=== PATIENT | female | born 1970 | race Caucasian/White ===

== ENCOUNTER → 2020-07-06 15:19 | Outpatient (BNVA) | payer OTHER, SELFPAY | PROVIDERS: PCP Internal Medicine; Referring Provider Internal Medicine; Visit Provider Nurse Practitioner Family | DX: I48.0 Paroxysmal atrial fibrillation (principal); I10 Essential (primary) hypertension; R00.2 Palpitations; R00.0 Tachycardia, unspecified | CPT/HCPCS: 93005 ==

== ENCOUNTER → 2021-03-22 14:29 | Outpatient (BNVA) | payer OTHER, SELFPAY | PROVIDERS: PCP Internal Medicine; Referring Provider Internal Medicine; Visit Provider Internal Medicine Cardiovascular Disease | DX: I48.0 Paroxysmal atrial fibrillation (principal); I10 Essential (primary) hypertension | CPT/HCPCS: 93005 ==

== ENCOUNTER 2021-12-26 09:01 | Outpatient (REF) | payer OTHER, SELFPAY ==
[2021-12-26 10:24] LABS: MANUAL DIFF FLAG NO
[2021-12-26 11:04] LABS: Basophils Absolute Auto 0.1 X10*3/uL (0.0-0.2); Eosinophils Absolute Auto 0.2 X10*3/uL (0.0-0.4); Eosinophils Percent Auto 3.9 % (0-4); Hematocrit 42.9 % (37.0-47.0); Hemoglobin 14.1 g/dl (12.0-16.0); Imm Gran Abs Auto 0.02 X10*3/uL (0.00-0.03); Imm Gran Pct Auto 0.3 % (0.0-0.4); Lymphocytes Percent Auto 32.4 % (20-40); Mean Corpuscular HGB Conc 32.9 g/dl (31.0-35.0); Mean Corpuscular Hemoglobin 29.6 pg (27.0-33.0); Mean Corpuscular Volume 89.9 fL (80.0-98.0); Mean Platelet Volume 10.4 fL (9.4-12.3); Monocytes Absolute Auto 0.6 X10*3/uL (0.1-1.2); Monocytes Percent Auto 9.4 % (2-11); Neutrophils Absolute Auto 3.3 x10*3/uL (2.0-8.3); Platelet Count 249 X10*3/uL (160-400); Red Blood Count 4.77 X10*6/uL (4.20-5.50); Red Cell Distribution Width 12.5 % (11.0-16.0); White Blood Count 6.2 X10*3/uL (4.8-10.8)
[2021-12-26 11:50] LABS: Anion Gap 12 (12-20); Blood Urea Nitrogen 18 mg/dL (9-16); Calcium 9.7 mg/dL (8.4-10.2); Carbon Dioxide 25 mmol/L (22-29); Chloride 107 mmol/L (96-108); Estimated Glomerular Filt Rate > 60; Glucose Random 104 mg/dL (60-115); Potassium 5.3 mmol/L (3.3-5.1); Sodium 139 mmol/L (135-145)
== END 2021-12-26 09:02 | disposition home or self-care (01) ==
LOC: HO.LAB 09:01
PROVIDERS: PCP Internal Medicine; Visit Provider Internal Medicine Cardiovascular Disease
DX: I48.0 Paroxysmal atrial fibrillation (principal); I10 Essential (primary) hypertension
CPT/HCPCS: 36415; 80048; 85025; 93005

== ENCOUNTER → 2022-12-03 15:49 | Outpatient (REF) | payer OTHER, SELFPAY ==
--- NOTE | 2022-12-03 15:53 | CA_ITS ---
Transthoracic Echocardiogram Patient (Last, First, Middle): Kandy Mccann, Gender: Female Date of : 1970 Age: 52 Procedure Date: 12/03/2022 Procedure Type: Transthoracic Echocardiogram Location: OP Height: 165.1 cm Weight: 69.85 kg BSA: 1.77 m2 Heart Rate: 50 bpm BP: 122 / 84 mmHg Diamond Wheel Edger: CONCEPCION Referring MD: Arsen Del Rosario MD Gathering Machine Setter: Arsen Del Rosario MD Symptoms: I48.0 - Paroxysmal atrial fibrillation Study Quality: Adequate ECG Rhythm: Sinus Conclusions: - Normal study Findings Left Ventricle Normal left ventricular size, thickness, and systolic function. The visually estimated ejection fraction is between 60-65%. Spectral Doppler is indicative of a normal filling pattern. Peak GLS is -21.9%, within normal limits. Right Ventricle Normal right ventricular cavity size and systolic function. Atria Both atria are normal in size. There is no evidence of interatrial shunt. Aortic Valve Normal aortic valve structure and function. There is no aortic valve stenosis. There is no aortic valve regurgitation. Mitral Valve Normal mitral valve structure and function. There is trace mitral valve regurgitation. There is no mitral valve stenosis. Pulmonic Valve The pulmonic valve is likely normal. There is trace to mild pulmonic valve regurgitation. Tricuspid Valve Normal tricuspid valve structure. There is trace tricuspid valve regurgitation. The right ventricular systolic pressure is 26 mmHg. Normal right atrial pressure. There is no evidence of pulmonary hypertension. Great Vessels All visible segments of the aorta are normal in size. The visualized portions of the pulmonary artery and branches are normal. Venous The inferior vena cava is normal in size and collapses greater than 50% with inspiration. Pericardium/Pleural There is no evidence of pericardial effusion. Measurements 2D Linear Measurements IVSd: 0.94 0.6-0.9/0.6-1.0 cm LVIDd: 4.65 3.9-5.3/4.2-5.9 cm LVIDd Index: 2.63 2.4-3.2/2.2-3.1 cm/m2 LVIDs: 2.91 2.0-3.6 cm LVPWd: 0.95 0.7-1.1 cm LA Diam: 3.90 2.7-3.8/3.0-4.0 cm LAIDs Index: 2.20 1.5-2.3 cm/m2 LV Mass: 186.48 67-162/88-224 g LV Mass Index: 105.36 43-95/49-115 g/m2 LVOT Diam: 2.00 3.0+(-)1.3 cm 2D Systolic Function EF 4C: 61.90 >55% EF 2C: 62.70 >55% EF BiP: 61.90 >55% Mitral Valve MV Pk E: 0.86 MV PK A: 0.69 MV Decel Time: 221.00 E/A: 1.20 E'Lateral: 10.40 E'Medial: 7.07 E/E' Med: 12.20 E/E' Lat: 8.30 PHT: 65.00 MVA PHT: 3.38 Decel Petroleum: 3.90 Aortic Valve AoV Pk Guilherme: 1.52 AoV Mn Guilherme: 1.05 AoV VTI: 0.41 AoV Pk Grad: 9.00 Aov Mn Grad: 5.00 YUSUF Cont.VTI: 2.66 LVOT LVOT Pk Guilherme: 1.36 LVOT Mn Guilherme: 0.90 LVOT VTI: 0.35 LVOT Pk Grad: 7.00 LVOT Mn Grad: 4.00 LVOT Diam: 2.00 LVOT Area: 3.14 Diastolic Function MV Pk E: 0.86 MV Pk A: 0.69 E/A: 1.20 E'Medial: 7.07 E/E' Med: 12.20 E' Laterial: 10.40 E/E' Lat: 8.30 Right Ventricle TAPSE (mm): 26.10 TVS' Guilherme: 12.20 Tricuspid Valve TR Pk Guilherme: 2.39 TR Pk Grad: 23.00 RA Press: 3.00 RVSP: 26.00 Great Vessels Aorta Sinus of Valsalva: 2.64 2.0-3.5 cm Ao Asc: 3.00 2.1-3.4 cm Updated in Other Vendor System with Status of Final Arsen Del Rosario MD electronically signed on 12/04/2022 4:23:36 PM with status of Final
== END ==
LOC: HO.CARD 15:49
PROVIDERS: Visit Provider Internal Medicine Cardiovascular Disease
DX: I48.0 Paroxysmal atrial fibrillation (principal)
CPT/HCPCS: 93306

== ENCOUNTER 2022-12-24 10:15 | Outpatient (REF) | payer OTHER, SELFPAY ==
[2022-12-24 11:41] LABS: Hematocrit 43.5 % (37.0-47.0); Hemoglobin 14.3 g/dl (12.0-16.0); Mean Corpuscular HGB Conc 32.9 g/dl (31.0-35.0); Mean Corpuscular Hemoglobin 29.5 pg (27.0-33.0); Mean Corpuscular Volume 89.7 fL (80.0-98.0); Mean Platelet Volume 9.9 fL (9.4-12.3); Platelet Count 284 X10*3/uL (160-400); Red Blood Count 4.85 X10*6/uL (4.20-5.50); Red Cell Distribution Width 12.4 % (11.0-16.0); White Blood Count 5.9 X10*3/uL (4.8-10.8)
[2022-12-24 12:13] LABS: Anion Gap 13 (12-20); Blood Urea Nitrogen 17 mg/dL (9-16); Calcium 9.7 mg/dL (8.4-10.2); Carbon Dioxide 24 mmol/L (22-29); Chloride 106 mmol/L (96-108); Estimated Glomerular Filt Rate > 60; Glucose Random 100 mg/dL (60-115); Potassium 4.1 mmol/L (3.3-5.1); Sodium 139 mmol/L (135-145)
== END 2022-12-24 10:16 | disposition home or self-care (01) ==
LOC: HO.LAB 10:15
PROVIDERS: PCP Internal Medicine; Visit Provider Internal Medicine Cardiovascular Disease
DX: I48.0 Paroxysmal atrial fibrillation (principal); I10 Essential (primary) hypertension; R42 Dizziness and giddiness
CPT/HCPCS: 36415; 80048; 85027; 93005

== ENCOUNTER 2023-12-23 08:32 | Outpatient (REF) | payer OTHER, SELFPAY ==
[2023-12-23 09:51] LABS: Hematocrit 43.2 % (37.0-47.0); Hemoglobin 14.4 g/dl (12.0-16.0); Mean Corpuscular HGB Conc 33.3 g/dl (31.0-35.0); Mean Corpuscular Volume 86.9 fL (80.0-98.0); Mean Platelet Volume 9.5 fL (9.4-12.3); Platelet Count 248 X10*3/uL (160-400); Red Blood Count 4.97 X10*6/uL (4.20-5.50); White Blood Count 5.1 X10*3/uL (4.8-10.8)
[2023-12-23 10:32] LABS: Anion Gap 13 (12-20); Blood Urea Nitrogen 14 mg/dL (9-16); Carbon Dioxide 26 mmol/L (22-29); Chloride 107 mmol/L (96-108); Estimated Glomerular Filt Rate > 60; Glucose Random 86 mg/dL (60-115); Sodium 142 mmol/L (135-145)
[2023-12-23 10:53] LABS: TSH reflex Free T4 0.47 uIU/mL (0.32-4.0)
== END 2023-12-23 08:33 | disposition home or self-care (01) ==
LOC: HO.LAB 08:32
PROVIDERS: PCP Internal Medicine; Visit Provider Internal Medicine Cardiovascular Disease
DX: I48.0 Paroxysmal atrial fibrillation (principal); I10 Essential (primary) hypertension
CPT/HCPCS: 36415; 80048; 84443; 85027; 93005

== ENCOUNTER 2023-12-23 08:32 | Outpatient (AMB) | payer OTHER, SELFPAY ==
--- NOTE | 2023-12-23 08:37 | A.OFFVIS_ITS ---
Vital Signs 12/23/23 08:40 Height 5 ft 5 in Weight 145 lb 8.081 oz BMI 24.2 BP 114/70 Blood Pressure Location Lt brachial Position Sitting Pulse 66 Intake Visit Reasons: 1 yr w/ ekg s/p echo Intake Note: 1 year follow-up with ekg after echo feeling good Bias Cutting Machine Operator Vertical Required: No Allergies bupropion [From Wellbutrin] Allergy (Unknown, Verified 03/22/21 14:41) unknown codeine [CODEINE] Allergy (Unknown, Verified 03/22/21 14:41) UNKNOWN trazodone [TRAZODONE] Allergy (Unknown, Verified 03/22/21 14:41) ITCHING Medication List - Last Reconciled 12/23/23 by Arsen Del Rosario MD escitalopram oxalate 5 mg PO QAM flecainide 150 mg (3 x 50 mg) PO ONCE PRN metoprolol succinate ER 50 mg PO DAILY rivaroxaban (Xarelto) 20 mg PO DAILY rosuvastatin 20 mg PO Q OTHER DAY HPI Comments Details: Kandy comes for follow-up. She has been doing very well although recently for about 2 months she has not taking losartan because she was feeling lightheaded. She is started using her be oz weight loss injections and also had stopped taking Xarelto and metoprolol. However she started having palpitation she is back on metoprolol at this point in time. She is also started on Xarelto. She has stopped taking the weight loss injections. 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 She is getting lower anxious and stressed. She has not been measuring her blood pressure at home. However she denies any exertional chest pain. No orthopnea, PND, leg edema. [facility] Medical History Family history of coronary artery disease HLD (hyperlipidemia) PAF (paroxysmal atrial fibrillation) HTN (hypertension) Family History Father CVD (cardiovascular disease) Mother No problems noted. Social History Alcohol intake: current Alcohol intake frequency: a few times a week Alcohol type: beer, wine and hard liquor Patient Tobacco Use Status: Never used Tobacco Review of Systems Const Denies chills, Denies fatigue, Denies fever(s), Denies frequent falls, Denies weakness, Denies weight gain and Denies weight loss ENT Denies dizziness Card Denies chest pain, Denies leg edema, Denies lightheadedness, Denies palpitations, Denies dyspnea, Denies dyspnea on exertion, Denies orthopnea and Denies other (loss of consciousness) Resp Denies cough, Denies dyspnea and Denies dyspnea on exertion GI Denies hematochezia and Denies change in stool character Musc Denies abnormal gait, Denies muscle weakness, Denies numbness, Denies radiating pain into limb and Denies tingling Neuro Denies abnormal gait, Denies dizziness, Denies frequent falls, Denies numbness, Denies tingling and Denies weakness Endo Denies fatigue and Denies palpitations Physical Exam Vital Signs: Last Vital Signs Pulse 66 12/23/23 08:40 BP 114/70 12/23/23 08:40 BMI result Body Mass Index 24.2 Const General: cooperative, healthy appearing, comfortable and no acute distress Orientation/consciousness: patient oriented x3 HEENT Head: Yes normal to inspection Neck Neck: Yes normal visual inspection and Yes no JVD Carotids: normal carotid upstroke Resp Effort & Inspection: normal respiratory effort Auscultation: clear to auscultation bilaterally, no crackles, no rales, no rhonchi and no wheezes Cardio Jugular venous distension: no JVD Rate: regular rate Rhythm: regular rhythm Heart sounds: S1 normal heart sound present, S2 normal heart sound present, no gallops, no murmurs and no rubs Peripheral pulses: Peripheral pulses 2+ throughout GI Inspection: Yes normal to inspection Neuro General: patient oriented x3 Extrem General: Yes normal to inspection, No no pedal edema and No calf tenderness Office Procedures EKG Details: EKG shows normal sinus rhythm with incomplete right bundle-branch block with nonspecific T-wave changes predominantly T-wave inversion in V6 with borderline QTC interval 61004-Ookgcijldufjtoxtt, Complete Assessment & Plan Assessment & Plan (1) PAF (paroxysmal atrial fibrillation): Code(s): I48.0 - Paroxysmal atrial fibrillation Category: Medical Plan: Paroxysmal atrial fibrillation without any significant episodes of recurrent atrial fibrillation. She was having increased palpitation when she came on metoprolol which has now subsided on metoprolol therapy. Importance of medical therapy was discussed. CHADSVASc score of 2. Continue full oral anticoagulation, currently on Xarelto 20 mg daily. Semi annual renal function test should be pursued. Will check CBC, BMP and TSH. Avoidance of stimulants was discussed. Stress mitigation strategies were discussed. (2) HTN (hypertension): Code(s): I10 - Essential (primary) hypertension Category: Medical Plan: Hypertension which is currently optimized on metoprolol therapy. She is currently off losartan therapy for 2 months. Blood pressure is well optimized and she was having symptoms of lightheadedness. I advised her to stay of losartan therapy for now. However advised her to monitor blood pressure intermittently at home. Low-salt diet was discussed. Importance of regular physical activity was discussed. Stress mitigation strategies were discussed. Continue rosuvastatin therapy. Target goal LDL definitely less than 100 mg/dL. She has not fasting today would recommend through your office to have a fasting lipid panel in the near future. Will follow up in the clinic in 1 year's time after an echocardiogram. Thank you for allowing me to partake in her care Orders: Orders Complete Blood Count no Diff Today I48.0 - Paroxysmal atrial fibrillation TSH reflex Free T4 Today I48.0 - Paroxysmal atrial fibrillation CA echo transthoracic complete 1 Year I48.0 - Paroxysmal atrial fibrillation Basic Metabolic Panel Today I48.0 - Paroxysmal atrial fibrillation Coding Level of Care Code Est Pt Level 4 (15359) Diagnoses PAF (paroxysmal atrial fibrillation) I48.0 HTN (hypertension) I10 CPT Codes EKG - CPT: 10054-Yjzrrvfudecuzbajc, Complete ([id number])
[2023-12-23 08:40] VITALS: BP 114/70; PULSE 66; BMI 24.2
== END 2023-12-23 11:12 | disposition home or self-care (01) ==
PROVIDERS: Visit Provider Internal Medicine Cardiovascular Disease
DX: I48.0 Paroxysmal atrial fibrillation (principal); I10 Essential (primary) hypertension
CPT/HCPCS: 93010; 99214

== ENCOUNTER → 2024-12-17 08:21 | Outpatient (REF) | payer OTHER, SELFPAY ==
--- NOTE | 2024-12-17 08:27 | CA_ITS ---
Transthoracic Echocardiogram Patient (Last, First, Middle): Kandy Holly, Gender: Female Date of : 1970 Age: 54 Procedure Date: 12/17/2024 Procedure Type: Transthoracic Echocardiogram Location: OP Height: 165.1 cm Weight: 65.77 kg BSA: 1.73 m2 Heart Rate: 59 bpm BP: 114 / 70 mmHg Director Manufacturing Engineering: ARAVIND Referring MD: Arsen Del Rosario MD Vehicle Body Sander: Arsen Del Rosario MD Symptoms: I48.0 - Paroxysmal atrial fibrillation Study Quality: Adequate ECG Rhythm: Bradycardia Conclusions: - Essentially normal study Findings Left Ventricle Normal left ventricular size, thickness, and systolic function. The visually estimated ejection fraction is between 60-65%. Spectral Doppler is indicative of a normal filling pattern. Right Ventricle Normal right ventricular cavity size and systolic function. Atria Both atria are normal in size. There is no evidence of interatrial shunt. Aortic Valve Normal aortic valve structure and function. There is no aortic valve stenosis. There is no aortic valve regurgitation. Mitral Valve Normal mitral valve structure and function. There is trace mitral valve regurgitation. There is no mitral valve stenosis. Pulmonic Valve The pulmonic valve is likely normal. There is trace pulmonic valve regurgitation. Tricuspid Valve Normal tricuspid valve structure. There is trace tricuspid valve regurgitation. The right ventricular systolic pressure is normal. The right ventricular systolic pressure is 20 mmHg. Normal right atrial pressure. There is no evidence of pulmonary hypertension. Great Vessels All visible segments of the aorta are normal in size. The pulmonary artery was not well visualized. Venous The inferior vena cava is normal in size and collapses greater than 50% with inspiration. Pericardium/Pleural There is no evidence of pericardial effusion. Prior Study Comparison No significant change compared to prior study dated: 12/03/2022. Measurements 2D Linear Measurements IVSd: 0.96 0.6-0.9/0.6-1.0 cm LVIDd: 5.05 3.9-5.3/4.2-5.9 cm LVIDd Index: 2.92 2.4-3.2/2.2-3.1 cm/m2 LVIDs: 2.96 2.0-3.6 cm LVPWd: 0.77 0.7-1.1 cm LA Diam: 3.80 2.7-3.8/3.0-4.0 cm LAIDs Index: 2.20 1.5-2.3 cm/m2 LV Mass: 190.05 67-162/88-224 g LV Mass Index: 109.86 43-95/49-115 g/m2 LVOT Diam: 2.10 3.0+(-)1.3 cm 2D Systolic Function EF 4C: 61.10 >55% EF 2C: 66.60 >55% EF BiP: 64.50 >55% Mitral Valve MV Pk E: 0.82 MV PK A: 0.77 MV Decel Time: 207.00 E/A: 1.10 E'Lateral: 10.70 E'Medial: 8.27 E/E' Med: 9.90 E/E' Lat: 7.60 PHT: 61.00 MVA PHT: 3.61 Decel Pike: 3.94 Aortic Valve AoV Pk Guilherme: 1.65 AoV Pk Grad: 11.00 YUSUF: 3.29 LVOT LVOT Pk Guilherme: 1.48 LVOT Mn Guilherme: 1.00 LVOT VTI: 0.31 LVOT Pk Grad: 9.00 LVOT Mn Grad: 5.00 LVOT Diam: 2.10 LVOT Area: 3.46 Diastolic Function MV Pk E: 0.82 MV Pk A: 0.77 E/A: 1.10 E'Medial: 8.27 E/E' Med: 9.90 E' Laterial: 10.70 E/E' Lat: 7.60 Right Ventricle TAPSE (mm): 21.90 TVS' Guilherme: 11.00 Tricuspid Valve TR Pk Guilherme: 2.05 TR Pk Grad: 17.00 RA Press: 3.00 RVSP: 20.00 Great Vessels Aorta Sinus of Valsalva: 2.50 2.0-3.5 cm Ao Asc: 3.00 2.1-3.4 cm Ao Arch: 3.10 Ao Desc: 1.10 Pulmonary Valve PV Pk Guilherme: 0.98 Peak PV Grad: 4.00 Updated in Other Vendor System with Status of Final Arsen Del Rosario MD electronically signed on 12/18/2024 12:12:23 PM with status of Final
--- OUTSIDE RECORDS SUMMARY | 2024-12-17 08:34 | XMS_ITS | Encounter Summary ---
Author Organization [facility] Address [address] [place] [address] Care Team Providers Care Swing Ride Operator Name Role Phone Jimmy Aguilar MD Primary Care Provider Encounter Details Date Type Department Care Team (Late st Contact Info) Description 06/11/2021 Scanned Document [address] [address] Provider, Generic Social History Tobacco Use Types Packs/Day Years Used Date Smoking Tobacco: Never Smokeless Tobacco: Never Alcohol Use Standard Drinks/Week Comments Yes 0 (1 standard drink = 0.6 oz pur e alcohol) occasional Comments No Sex and Gender Information Value Date Recorded Sex Assigned at Female 03/15/2023 12:08 AM EDT Legal Sex Female 2:00 PM EDT Gender Identity Female 03/15/2023 12:08 AM EDT Sexual Orientation Heterosexual (straight) 03/15 12:08 AM EDT documented as of this encounter Plan of Treatment Upcoming Encounters Date Type Department Care Team (Late st Contact Info) Description 02/02/2025 11:30 AM EDT Office Visit [facility] [address] [place] [address] Sacha Whitfield MD [address] [place] [address] 07/19/2025 8:45 AM EST Office Visit [facility] [address] [facility] [address] [place] [address] Josh Fregoso MD 80 [place] [address] 08/23/2026 2:00 PM EST Office Visit [facility] Endocrinology [place] 190 [facility] 103 [place] [phone] Ariel Jimenez MD 190 [facility] 103 [place] [address] documented as of this encounter Visit Diagnoses Not on filedocumented in this encounter Care Teams Swing Ride Operator Relationship Specialty Start Date End Date Jimmy Aguilar MD [address] [place] [address] PCP - General Internal Medicine 10/03/19 documented as of this encounter
--- OUTSIDE RECORDS SUMMARY | 2024-12-17 08:34 | XMS_ITS | Patient Health Record ---
Author Organization [employer] [facility]. Address [address] [facility] [id number] [address] Care Team Providers Care Loan Underwriter Name Role Phone Conversion, Primary Care Provider REASON FOR REFERRAL No Information PLAN OF TREATMENT No Information
--- OUTSIDE RECORDS SUMMARY | 2024-12-17 08:34 | XMS_ITS | Encounter Summary ---
Author Organization [facility] Address [address] [place] [address] Care Team Providers Care Machining Supervisor Name Role Phone Jimmy Aguilar MD Primary Care Provider [phone] Encounter Details Date Type Department Care Team (Late st Contact Info) Description 07/10/2020 Lab Requisition [facility] [address] [place] [phone] Bora Ricketts PA-C [address] [place] [address] Encounter for laboratory testing for COVID-19 virus Social History Tobacco Use Types Packs/Day Years [...] Orientation Heterosexual (straight) 03/15 12:08 AM EDT COVID-19 Exposure Response Date Recorded In the last month, have you been in contact with someone who was confirmed or suspected to have Coronavirus / COVID-19? Yes 07/10/2020 10:07 AM EST documented as of this encounter Plan of Treatment Upcoming Encounters Date Type Department Care Team (Late st Contact Info) Description 02/02/2025 11:30 AM EDT Office Visit [address] [address] Sacha Whitfield MD [address] [place] [address] 07/19/2025 8:45 AM EST Office Visit [facility] 10 [facility] [address] [place] [phone] Josh Fregoso MD 80 [place] [address] 08/23/2026 2:00 PM EST Office Visit [facility] Endocrinology [place] [address] [place] [facility] [address] [place] [phone] Ariel Jimenez MD [address] [place] [facility] 103 [place], [place] [phone] documented as of this encounter Procedures Procedure Name Priority Date/Time Associated Diagnosis Comments COVID-19 (SARS-COV-2) - [facility] Routine 07/10/2020 10:32 AM EST Encounter for laboratory testing for COVID-19 virus [ICD-10-CM] documented in this encounter Results * COVID-19 (SARS-COV-2) (07/10/2020 10:32 AM EST) COVID-19 RT-PCR NOT-DETEC JEREMAÍS Not-Detec jeremías 07/11/2020 12:01 PM EST [facility] Comment:Interpretation: The viral RNA was not detected, making the COVID-19 diagnosis less likely. Clinical correlation is highly recommended.Final report signed by Willi Moser, Ph.D., Laboratory DirectorTests performed at [facility] Nasopharyngeal swab / Unknown 07/10/2020 10:32 AM EST 07/10/2020 10:32 AM EST Narrative [facility] - 07/11/2020 12:01 PM EST Performed by [facility] [address] [place] [address], CLIA# [id number] and [place] License# [id number] Bora Ricketts PA-C MICROBIOLOGY - GENERAL OR DERABLES Final Result [facility] documented in this encounter Visit Diagnoses Diagnosis Encounter for laboratory testing for COVID-19 virus documented in this encounter Care Teams Machining Supervisor Relationship Specialty Start Date End Date Jimmy Aguialr MD [address] [place] [address] PCP - General Internal Medicine 10/03/19 documented as of this encounter
--- OUTSIDE RECORDS SUMMARY | 2024-12-17 08:35 | XMS_ITS | Encounter Summary ---
Author Organization [facility] Address [address] [place] [address] Care Team Providers Care Alteration Specialist Name Role Phone Jimmy Aguilar MD Primary Care Provider Encounter Details Date Type Department Care Team (Latest Contact Info) Description 09/02/2020 Lab Requisition [facility] [address] Through [address] [place] [address] [address] [place] [address] Jamel Hernandez MD 80 [place], [place] [phone] Encounter for laboratory testing for COVID-19 virus [...] Description 02/02/2025 11:30 AM EDT Office Visit [address] [phone] Sacha Whitfield MD [address] [place] [address] 07/19/2025 8:45 AM EST Office Visit [facility] [address] [facility] [address] [place] [address] Josh Fregoso MD 80 [place] [address] 08/23/2026 2:00 PM EST Office Visit [facility] Endocrinology [place] [address] [facility] [address] [place] [address] Ariel Jimenez MD [address] [facility] [address] [place], [place] [phone] documented as of this encounter Procedures Procedure Name Priority Date/Time Associated Diagnosis Comments COVID-19 (SARS-COV-2) - [facility] Routine 09/02/2020 1:27 PM EST Encounter for laboratory testing for COVID-19 virus [ICD-10-CM] documented in this encounter Results * COVID-19 (SARS-COV-2) ([facility]) (09/02/2020 1:27 PM EST) COVID-19 RT-PCR NOT-DETEC JEREMÍAS Not-Detec jeremías 09/03/2020 9:33 PM EST [facility] Comment:Interpretation: The viral RNA was not detected, making the COVID-19 diagnosis less likely. Clinical correlation is highly recommended.Final report signed by Willi Moser, Ph.D., Laboratory DirectorTests performed at [facility] Nasopharyngeal swab / Unknown 09/02/2020 1:27 PM EST 09/02/2020 1:27 PM EST Narrative [facility] - 09/03/2020 9:33 PM EST Performed by [facility] [address] [place], [place] [id number], CLIA# [id number] and [place] License# [id number] us Jamel Hernandez MD MICROBIOLOGY - GENERAL ORDER TWAN Final Result [facility] documented in this encounter Visit Diagnoses Diagnosis Encounter for laboratory testing for COVID-19 virus documented in this encounter Care Teams Alteration Specialist Relationship Specialty Start Date End Date Jimmy Aguilar MD [address] [place] [address] PCP - General Internal Medicine 10/03/19 documented as of this encounter
--- OUTSIDE RECORDS SUMMARY | 2024-12-17 08:35 | XMS_ITS | Encounter Summary ---
Author Organization [facility] Address [address] [place] [address] Care Team Providers Care Glass Bender Name Role Phone Jimmy Aguilar MD Primary Care Provider Encounter Details Date Type Department Care Team (Latest Contact Info) Description 09/26/2020 Lab Requisition [facility] [address] Through [address] [place] [address] [address] [place] [address] Jamel Hernandez MD [address] [place], [place] [phone] Encounter for laboratory testing for COVID-19 virus [...] Description 02/02/2025 11:30 AM EDT Office Visit [address] [phone] Sacha Whitfield MD [address] [place] [address] 07/19/2025 8:45 AM EST Office Visit [facility] [address] [facility] [address] [place] [address] Josh Fregoso MD 80 [place] [address] 08/23/2026 2:00 PM EST Office Visit [facility] Endocrinology [place] [address] [place] [address] [place] [address] Ariel Jimenez MD [address] [place], [place] [phone] documented as of this encounter Procedures Procedure Name Priority Date/Time Associated Diagnosis Comments COVID-19 (SARS-COV-2) - [facility] Routine 09/26/2020 4:54 PM EST Encounter for laboratory testing for COVID-19 virus [ICD-10-CM] documented in this encounter Results * COVID-19 (SARS-COV-2) ([facility]) (09/26/2020 4:54 PM EST) COVID-19 RT-PCR NOT-DETEC JEREMÍAS Not-Detec jeremías 09/27/2020 7:12 PM EST [facility] Comment:Interpretation: The viral RNA was not detected, making the COVID-19 diagnosis less likely. Clinical correlation is highly recommended.Final report signed by Jose Veloz, Ph.D., Laboratory DirectorTests performed at [facility] Nasopharyngeal swab / Unknown 09/26/2020 4:54 PM EST 09/26/2020 4:54 PM EST Narrative [facility] - 09/27/2020 7:12 PM EST Performed by [facility] [address] [place], [place] [id number], CLIA# [id number] and [place] License# [id number] us Jamel Hernandez MD MICROBIOLOGY - GENERAL ORDER TWAN Final Result [facility]4 [facility] documented in this encounter Visit Diagnoses Diagnosis Encounter for laboratory testing for COVID-19 virus documented in this encounter Care Teams Glass Bender Relationship Specialty Start Date End Date Jimmy Aguilar MD [address] [place] [address] PCP - General Internal Medicine 10/03/19 documented as of this encounter
--- OUTSIDE RECORDS SUMMARY | 2024-12-17 08:35 | XMS_ITS ---
Author Name [facility] Organization Unknown Results Test Name/Text Value Interpretation Date Range Source LAB AP CLINICAL INFORMATION Calcinosis cutis Normal [facility] LAB AP DIAGNOSIS COMMENT Received from [facility], [facility] [address], [place] [id number], are one slide and one block labeled [id number] , which are retained for our files. Normal [facility] AP GROSS DESCRIPTION Received in formalin is an irregularly shaped fragment of skin measuring 0.5 x 0.3 x 0.3 cm. The specimen is bisected and submitted entirely in one cassette. (Gross description performed by [facility].) Normal [facility] AP CLINICAL INFORMATION SCC Normal [id number] [facility] AP DIAGNOSIS COMMENT Received from [facility], [address] [place] [address], [address], [place] [id number] are one slide and one block labeled [id number] , which are retained for our files. Normal [id number] [facility] AP GROSS DESCRIPTION Received in formalin is an irregularly shaped fragment of skin measuring 0.9x0.8x0.2 cm. The deep margin is inked in black, and the specimen is serially sectioned and submitted entirely in one cassette (Gross description performed by [facility].) Normal [facility] AP DIAGNOSIS COMMENT Received from [facility], [facility] [address], [address], [place] [address] are one slide and one block labeled [id number] , which are retained for our files. Normal [facility] AP CLINICAL INFORMATION SCC; margins requested Normal [id number] [facility] History of Medication Use Medication Directions Dispensed Refills Start Date End Date Stat benzonatate (TESSALON) 200 MG capsule Take 1 capsule (200 mg total) by mouth 3 (three) times a day as needed for cough. 09/14/2024 active doxycycline (MONODOX) 100 MG capsule Take 1 capsule (100 mg total) by mouth 2 (two) times a day. 09/14/2024 active rimegepant (NURTEC) 75 mg dispersible tablet Take 1 tablet (75 mg total) by mouth every other day. 09/08/2024 active botulinum toxin type A (BOTOX) injection SOLR 200 Units 200 Units, Intramuscular, Once, On Fri03/17/24 at 0930, For 1 dose 03/17/2024 03/17/2024 completed lidocaine (PF) 100 mg/5 mL (2 %) injection syringe Take 8 mL by injection route. 02/23/2024 03/10/2024 active triamcinolone acetonide 40 mg/mL suspension for injection Take 80 mg by injection route. 02/23/2024 03/10/2024 active sulfamethoxazole-tri methoprim (BACTRIM DS,SEPTRA DS) 800-160 MG tablet 1 tablet 07/01/2023 07/02/2023 active lidocaine (LIDODERM) 5 % patch Place 1 patch on the skin daily. Apply patch and leave on for 12 hours then remove. Patch may remain on skin for 12 hours per day. 02/09/2023 05/03/2023 active losartan (COZAAR) 50 mg tablet Take 1 tablet (50 mg total) by mouth 1 (one) time each day. 08/05/2021 active losartan (COZAAR) tablet 50 mg Take 50 mg by mouth daily. 08/05/2021 active metoprolol succinate (TOPROL-XL) 50 mg 24 hr tablet Take 1 tablet (50 mg total) by mouth 1 (one) time each day. 01/30/2021 active oseltamivir (TAMIFLU) 75 MG capsule Take 1 capsule (75 mg total) by mouth 2 (two) times a day. 05/20/2020 05/03/2023 aborted losartan (COZAAR) 50 MG tablet Take 1 tablet (50 mg total) by mouth daily. 05/02/2020 active chlorhexidine (PERIDEX) 0.12 % oral solution RINSE AND GARGLE 15 ML PO OR THROAT BID FOR 14 DAYS 03/30/2020 active butalbital-acetamino phen-caffeine (FioriCET) 50-300-40 mg Cap capsule TK 1 TO 2 CS PO Q 4 H PRF TRAN 03/24/2020 active traMADol (ULTRAM) 50 MG tablet TK 1 TO 2 TS PO Q 6 H PRF ACUTE PAIN 03/24/2020 active famotidine (PEPCID) 20 MG tablet Take 1 tablet (20 mg total) by mouth 2 (two) times a day. 03/14/2020 05/03/2023 aborted rivaroxaban (Xarelto) 20 mg tablet Take 1 tablet (20 mg total) by mouth 1 (one) time each day in the evening. 03/09/2018 active XARELTO 20 MG TABS tablet 20 mg every evening. 03/09/2018 active rnoozmyh-gggtcalcb-v ydrocort 3.5 mg/mL-10,000 unit/mL-1 % ear solution APPLY 3 DROPS TO EAR DIRECTED EVERY 6 HOURS FOR 10 DAYS 11/15/2024 completed cefdinir 300 mg capsule TAKE 2 CAPSULES BY MOUTH EVERY DAY FOR 10 DAYS 08/09/2024 completed fluticasone propionate 50 mcg/actuation nasal spray,suspension SHAKE LIQUID AND USE 1 SPRAY IN EACH NOSTRIL ONCE A DAY 08/09/2024 completed naproxen 500 mg tablet TAKE 1 TABLET BY MOUTH EVERY 12 HOURS NEEDED FOR PAIN TAKE WITH FOOD FOR PAIN AND SWELLING 08/09/2024 completed prednisone 10 mg tablet TAKE 3 TABLETS BY MOUTH DAILY FOR 2 DAYS THEN TAKE 2 TABLETS BY MOUTH DAILY FOR 2 DAYS THEN TAKE 1 TABLET BY MOUTH DAILY WITH FOOD FOR 2 DAYS 08/09/2024 completed ibuprofen 800 mg tablet TAKE 1 TABLET BY MOUTH EVERY 8 HOURS 03/10/2024 completed oxycodone 5 mg tablet 03/10/2024 completed tamsulosin 0.4 mg capsule 03/10/2024 completed losartan 50 mg tablet TAKE 1 TABLET BY MOUTH DAILY active metoprolol succinate ER 50 mg tablet,extended release 24 hr TAKE 1 TABLET BY MOUTH DAILY active rosuvastatin 20 mg tablet TAKE 1 TABLET BY MOUTH EVERY OTHER DAY active rivaroxaban (XARELTO) 20 MG tablet Take 1 tablet (20 mg total) by mouth every evening with dinner. Take with meals. active rosuvastatin (CRESTOR) 5 mg tablet Take 2 tablets (10 mg total) by mouth. every other day. active rosuvastatin (CRESTOR) tablet 5 mg Take 10 mg by mouth every other day. 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 ([facility] V24) active 2021-11-21 ProblemAct [facility] Medial epicondylitis, left elbow active 2020-05-09 ProblemAct [facility] Discomfort of back active 2021-01-29 ProblemAct [facility] Memory deficit active 2021-10-22 ProblemAct [facility]_ [facility] Bone marrow edema active 2022-06-11 ProblemAct [facility] Lateral epicondylitis, right elbow active 2020-05-09 ProblemAct [facility] Generalized anxiety disorder active 2021-10-22 ProblemAct [facility] Sacroiliac pain active 2022-03-11 ProblemAct [facility] _[facility] Trochanteric bursitis, right hip active 2020-05-09 ProblemAct [facility] Pain and swelling of left knee active 2022-05-22 ProblemAct [facility] Other sleep apnea active 2021-07-26 ProblemAct [facility] Attention deficit hyperactivity disorder, combined type active 2021-11-21 ProblemAct [facility] Paroxysmal atrial fibrillation ([facility] V24, [facility] V28) active 2021-01-29 ProblemAct [facility] Left knee injury active 2022-06-11 ProblemAct C T_THSFRAN Lab test positive for detection of COVID-19 virus active 2021-08-06 ProblemAct [facility] Hypertension active 2003-03-04 ProblemAct [facility] Skin cancer active 2020-03-13 ProblemAct [facility] A-fib active 2014-03-04 ProblemAct [facility] High cholesterol active 2004-08-04 ProblemAct [facility] Suicide attempt active 2023-03-15 ProblemAct [facility] Blurred vision, bilateral active EncounterDiagnosisAct [facility] Stroke (cerebrum) active 2005-12-27 ProblemAct [facility] Osteoarthritis of right knee joint active 2024-02-23 ProblemAct [facility] Tendinitis of right gluteal tendon active 2024-11-15 ProblemAct [facility] Osteoarthritis of left knee joint active 2024-02-23 ProblemAct [facility] Migraine with aura and without status migrainosus, not intractable active EncounterDiagnosisAct CT[facility]NE MG History of tear of meniscus of knee joint active 2022-05-22 ProblemAct [facility]NEMG Immunizations Vaccine Date Source Lot Number Status Pfizer SARS-CoV-2 COVID-19, mRNA, LNP-S, preservative free 11/22/2020 [facility]_ANNYSFRAN [id number] completed Covid-19 MRNA Vaccine - Pfiz er 12+ (Purple Cap) 11/01/2020 CCT [id number] completed Tdap Tetanus diptheria acell ular pertussis (Boostrix; Adacel) 7yo and older 01/03/2019 [facility]_THS[facility]AN [id number] completed Influenza Quadravalent, MDCK , 0.5ml, preservative free (Flucelvax) 6mo and older 08/10/2017 CT_ANNYSFRAN [id number] completed Encounters Encounter Type Encounter Reason Primary Diagnosis Location Date Ambulatory [facility] 12/14/2024 Ambulatory Other Other [facility] 11/22/2024 Ambulatory [facility] 10/15/2024 Ambulatory [facility] 09/26/2024 Ambulatory Other [facility] 09/14/2024 Ambulatory Migraine with aura, intractable, without status migrainosus Migraine with aura, intractable, without status migrainosus [facility] 09/08/2024 Ambulatory Nontoxic multinodula r goiter Nontoxic multinodular goiter [facility] 08/17/2024 Ambulatory [facility] 08/09/2024 Ambulatory [facility] 08/09/2024 [facility] Calculus of kidney Calculus of kidney [facility] 07/06/2024 Ambulatory Illness Illness [facility] 06/10/2024 Ambulatory [facility] 02/24/2024 Ambulatory [facility] 02/24/2024 Ambulatory [facility] 02/23/2024 Ambulatory [facility] 02/23/2024 Ambulatory [facility] 02/20/2024 Ambulatory [facility] 02/20/2024 Ambulatory [facility] 02/20/2024 Ambulatory Nontoxic multinodula r goiter Nontoxic multinodular goiter [facility] 08/13/2023 Ambulatory Gross hematuria Gross hematuria [facility] 07/23/2023 Ambulatory Hematuria, unspecified Hematuria, unspecified [facility] 07/21/2023 Ambulatory Hematuria, unspecified Hematuria, unspecified [facility] 07/17/2023 Ambulatory Calculus of kidney Calculus of kidney [facility] 07/01/2023 Ambulatory Hematuria, unspecified Hematuria, unspecified [facility] 05/15/2023 Ambulatory [facility] 05/03/2023 Ambulatory Pain in right toe(s) Pain in right toe(s) [facility] 05/03/2023 Ambulatory Calculus of kidney Calculus of kidney [facility] 04/30/2023 Ambulatory [facility] 04/25/2023 Ambulatory [facility] 04/25/2023 Ambulatory Pain, unspecified Pain, unspecified [facility] 04/18/2023 Ambulatory Gross hematuria Gross hematuria [facility] 03/25/2023 Observation Poisoning by selective serotonin and norepinephrine reuptake inhibitors, accidental (unintentional), initial encounter Poisoning by selective serotonin and norepinephrine reuptake inhibitors, accidental (unintentional), initial encounter [facility] 03/14/2023 Ambulatory Low back pain, unspecified [facility] 02/09/2023 Ambulatory [facility] 10/09/2022 Ambulatory COVID-19 [facility] 08/07/2021 Ambulatory Cough, unspecified [facility] 08/06/2021 Ambulatory Contact with and (suspected) exposure to covid-19 [facility] 08/01/2021 Care Team Organization Name Specialty Phone Email Start Date End [facility] 12/15/2024 [facility] 12/15/2024 [facility] 11/25/2024 [facility] 10/13/2024 [facility] 09/08/2024 [facility] 04/18/2023 10/15/2024 [facility] 04/18/2023 [facility] 03/06/2022 03/06/2022 [facility] 08/07/2021 [facility] 03/04/2021 03/22/2024 [facility] 03/04/2021 03/22/2024 [facility] 11/06/2020 08/07/2021
--- OUTSIDE RECORDS SUMMARY | 2024-12-17 08:35 | XMS_ITS | Encounter Summary ---
Author Organization [facility] Address [address] [place] [address] Care Team Providers Care Silk Soaker Name Role Phone Jimmy Aguilar MD Primary Care Provider [phone] Encounter Details Date Type Department Care Team (Late st Contact Info) Description 05/03/2023 11:15 AM EDT Hospital Encounter [facility] [address] [place] [address] Social History Tobacco Use Types Packs/Day Years Used Date Smoking Tobacco: Former Cigarettes Smokeless Tobacco: Never Comments:Per pt quit 20 year s ago Alcohol Use Standard Drinks/Week Comments Yes 0 (1 standard drink = 0.6 oz pur e alcohol) 1x/week AUDIT-C Answer Date Recorded Q1: How often do you have a drink containing alc ohol? 2-4 times a month 07/18/2023 Q2: How many drinks containi ng alcohol do you have on a typical day when you are drinking? 1 or 2 07/18/2023 Q3: How often do you have si x or more drinks on one occasion? Never 07/18/2023 Comments No Sex and Gender Information Value Date Recorded Sex Assigned at Female 03/15/2023 12:08 AM EDT Legal Sex Female 2:00 PM EDT Gender Identity Female 03/15/2023 12:08 AM EDT Sexual Orientation Heterosexual (straight) 03/15 12:08 AM EDT documented as of this encounter Functional Status * Audit-C Score Answer Date of Assessment Author 2 07/18/2023 4:26 PM Maya Aguiar RN * Question Answer Date of Assessment Author Q1: How often do you have a drink containing alcohol? 2-4 times a month 07/18/2023 4:26 PM Ora Aguiar R N Q2: How many drinks containing alcohol do you have on a typical day when you are drinking? 1 or 2 07/18/2023 4:26 PM Ora Aguiar RN Q3: How often do you have six or more drinks on one occasion? Never 07/18/2023 4:26 PM Ora Aguiar R N documented as of this encounter Plan of Treatment Upcoming Encounters Date Type Department Care Team (Late st Contact Info) Description 02/02/2025 11:30 AM EDT Office Visit [facility] [address] [place] [phone] Sacha Whitfield MD [address] [place] [phone] 07/19/2025 8:45 AM EST Office Visit [facility] [address] [phone] Josh Fregoso MD [address] [place] [phone] 08/23/2026 2:00 PM EST Office Visit [facility] Endocrinology [place] [address] [facility] [address] [place] [phone] Ariel Jimenez MD [address] [facility] [address] [place] [address] documented as of this encounter Procedures Procedure Name Priority Date/Time Associated Diagnosis Comments XR TOE (1ST) 2+ VIEWS-RIGHT STAT 05/03/2023 11:22 AM EDT Great toe pain, right documented in this encounter Results * XR Toe (1st) 2+ views-Right (05/03/2023 11:22 AM EDT) Anatomical Region Laterality Modality Foot Right Computed Radiogr aphy 05/03/2023 11:3 3 AM EDT Impressions 05/03/2023 11:34 AM EDT No acute osseous abnormalities. Narrative 05/03/2023 11:34 AM EDT Right toe. CLINICAL HISTORY: Trauma. COMPARISON(S): None. TECHNIQUE: Frontal, lateral and oblique radiographs of the right foot first digit are obtained. FINDINGS: No fractures or dislocations are seen. No radiopaque foreign bodies. Procedure Note Kailee Gutierrez MD - 05/03/2023 Right toe. CLINICAL HISTORY: Trauma. COMPARISON(S): None. TECHNIQUE: Frontal, lateral and oblique radiographs of the right footfirst digit are obtained. FINDINGS: No fractures or dislocations are seen. No radiopaque foreign bodies. IMPRESSION: No acute osseous abnormalities. Pia Jhoana PROGRAM ATTENDANT [facility] DIAGNOSTIC [facility] LISA BURGOS Final Result documented in this encounter Visit Diagnoses Not on filedocumented in this encounter Care Teams Silk Soaker Relationship Specialty Start Date End Date Jimmy Aguilar MD [address] [place] [address] PCP - General Internal Medicine 10/03/19 documented as of this encounter
--- OUTSIDE RECORDS SUMMARY | 2024-12-17 08:35 | XMS_ITS | Data Portability ---
Author Organization [place] [facility] [place] Address [address] [place] [address] Care Team Providers Care Corncob Pipe Supervisor Name Role Phone AILEEN OROURKE Referring Provider Assessment Encounter Date Assessment Date Assessment LastModified by Organization Details LastModified Time 02/23/2024 02/23/2024 53-year-old fema le with bilateral knee pain. History, examination and x-rays are consistent with osteoarthritis. After discussion regarding treatment options she wishes to proceed with bilateral knee cortisone injections. This is chosen in part for the fact that she is getting in 1 month. Please see the attached procedure note. She will also be provided a prescription for physical therapy. Follow-up in 2 months. Not available 02/23/2024 10:21:50 03/10/2024 03/10/2024 Kandy Mccann is a 53 year old female who presents today for her ride sided lumbar pain. She was previously seen for similar symptoms [place] [address] Harding who recommended conservative care. Today she notes right low back pain into the right buttock. Worse with sleeping and walking. She believes she may have had an MRI in the distant past with no acute findings. Her pain is tolerable and more of an annoyance. She was hoping for a physical therapy referral to begin after her upcoming wedding. She had a right hip injection which was helpful for her right hip pain. 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 She has no residual deficits. Denies saddle paresthesias, bowel or bladder incontinence, recent fevers or unexplained weight loss. Exam: Constitutional: appears well developed, in no acute distress. Respiratory: no respiratory distress Musculoskeletal: Normal gait Neck: Inspection of the cervical spine is unremarkable, no deformity noted. Nontender to palpation over midline cervical spine or paraspinal musculature. Back: Inspection of the thoracolumbar spine is unremarkable. No deformity noted. Neurologic: Sensation grossly intact to light touch in bilateral upper and lower extremities. 5/5 strength with muscle testing of the bilateral lower extremities. Able to toe raise and heel walk bilaterally Reflexes are normoactive in bilateral lower extremities. Normal tone in all 4 extremities. Negative Clonus bilaterally. Negative Babinski bilaterally. Skin: skin intact Imaging: AP and lateral x-rays of the lumbar spine were obtained on 03/10/2024 which demonstrates narrowing of the L5-S1 level as well as mildly at the L4-L5. No other acute osseous abnormalities. Plan: Merline is a 53-year-old female with lumbar spondylosis without radiculopathy. I would recommend moving forward with physical therapy for initial treatment. She can continue with Tylenol and thermal modalities as needed. We also discussed Salonpas patches and as needed. Follow-up in approximately 3 to 4 weeks for repeat assessment, sooner if condition worsens. Patient was seen and evaluated by Kerline Berman PA-C in indirect conjunction with Documenting Provider: Trey Ragland MD He agrees with history, physical examination, tests/diagnostic imaging, and treatment plan [email or web address] Not available 03/10/2024 11:52:41 08/09/2024 08/09/2024 53-year-old fema le with right knee pain. History, examination and x-rays are consistent with osteoarthritis. After discussion regarding treatment options she wishes to trial a second lifetime cortisone injection to the right knee. We are hopeful of achieving at least 3 months worth of relief. If she fails to get satisfactory relief lasting for 3 or more months we will consider viscosupplementation injections. She also has osteoarthritis of the left knee but her symptoms remain well-controlled following a February 2024 cortisone injection. At her request, follow-up will be as needed. This patient was seen and evaluated by Peace Holt MS, JACLYN in indirect conjunction with documenting/supervisin g provider Andrew Alvarez MD. He agrees with history, physical examination, tests/diagnostic imaging, and treatment plan. This document was generated using voice recognition software. As a result, there may be unintended spelling, grammatical and/or textual errors. Not available 08/09/2024 16:15:02 11/15/2024 11/15/2024 54-year-old fema le with right knee pain secondary to osteoarthritis. After discussion regarding treatment options she wishes to proceed with viscosupplementation injection. Follow-up with me pending insurance authorization. She also has symptoms consistent with gluteal tendinitis. She will be provided a physical therapy order so that she could do a home exercise plan incorporated into her exercise regimen to treat right hip pain. This patient was seen and evaluated by Peace Holt, MS, PA-C in indirect conjunction with documenting/supervisin g provider Andrew Alvarez MD. He agrees with history, physical examination, tests/diagnostic imaging, and treatment plan. This document was generated using voice recognition software. As a result, there may be unintended spelling, grammatical and/or textual errors. Not available 11/15/2024 09:47:10 Plan of Treatment Reminders Order Date Submit Date Provider Last Modified By Organization Details Last Modified Time Details Appointments None recorded. Lab None recorded. Referral orthopedi c physical therapist referral - Additiona l Comments: 2023 024 [email or web address] Not available 4 10:21:51 Procedures intra-art icular injection , knee, viscosupp lement (PROC) - Please check insurance for [employer] Author[employer] tion, insurance preferred med.Cho[employer] e One: 3 series or 1 series prefers 1Knee Lateralit y: Right 2024 025 [email or web address] Not available 5 13:20:23 Surgeries None recorded. Imaging XR, hip, unilatera l, 2 or 3 view 2024 025 [email or web address] [facility], [address], [place], [address], 5 09:45:00 XR, knee, 4 or more view 2024 025 [email or web address] [facility], [address], [place], [address], 5 16:42:04 XR, lumbosacr al spine, 2 or 3 view 2023 024 [email or web address] [facility], [address], [place], [address], 4 11:59:09 XR, knee, 1 or 2 view - Left Knee Pain 2023 024 [email or web address] 52 [facility], [address], [place], [address], 4 10:34:32 XR, knee, 1 or 2 view - Right Knee Pain 2023 024 [email or web address] 52 [facility], [address], [place], [address], 4 10:34:32 XR, knee, weightbea ring - Bilateral Knee Pain 2023 024 [email or web address] 52 [facility], [address], [place], [address], 4 10:34:32 Medication Orders Marcaine (PF) 0.5 % (5 mg/mL) injection solution 2024 025 [facility] #[id number], [address], [place], [place], [id number], 5 16:03:07 lidocaine (PF) 100 mg/5 mL (2 %) injection syringe 2024 025 [id number], [address], [place], [place], [id number], 5 16:03:07 triamcino lone acetonide 40 mg/mL suspensio n for injection 2024 025 [id number], [address], [place], [place], [id number], 5 16:03:07 Marcaine (PF) 0.5 % (5 mg/mL) injection solution 2023 024 [facility] #[id number], [address], [place], [place], [id number], 4 10:04:21 lidocaine (PF) 100 mg/5 mL (2 %) injection syringe 2023 024 [facility] #[id number], [address], [place], [place], [id number], 4 10:04:10 triamcino lone acetonide 40 mg/mL suspensio n for injection 2023 024 [facility] #[id number], [address], [place], [place], [id number], 4 10:05:00 Patient TargetsNo targets recorded. Patient Instructions Encounter Date Encounter Id Patient Instructions Last Modified By Organization Details Last Modified Time 02/23/2024 [id number] physical therapy * - Diagnosis: Osteoarthritis bilateral knees Evaluate and treat as indicated to reduce pain and to improve strength, mobility, stability, range of motion, and function. Please teach a home exercise plan and incorporate PT into patient's exercise routine. 2-3 sessions weekly for 6-8 weeks. [email or web address] Not available 03/01/2024 07:57:01 {{2 3 4 5 6 7 8* 9 }} view X-ray study obtained during today's office encounter show evidence of {{mild moderate* s evere}} {{right left bilat eral*}} {{hip knee*}} osteoarthritis. There is joint space narrowing, subchondral sclerosis and marginal osteophytosis. Kellgren-Joel grade {{0 1 2* 3 4}}. No evidence of acute fracture or osteolytic findings. Not available 02/23/2024 10:23:32 03/10/2024 [id number] AP and lateral x-rays of the lumbar spine were obtained on 03/10/2024 which demonstrates narrowing of the L5-S1 level as well as mildly at the L4-L5. No other acute osseous abnormalities. Not available 03/10/2024 11:52:43 08/09/2024 [id number] {{2 3 4 5 6* 7 8 9 }} view X-ray study obtained during today's office encounter show {{no}} evidence of {{mild moderate* s evere}} {{right left bilat eral*}} {{hip knee*}} osteoarthritis. There is joint space narrowing, subchondral sclerosis and marginal osteophytosis. Kellgren-Joel grade {{0 1 2 3* 4}}on the right and 2 on the left. No evidence of acute fracture or osteolytic findings. Not available 08/09/2024 16:03:02 11/15/2024 [id number] physical therapy * - Evaluate and treat as indicated to reduce pain and to improve strength, mobility, stability, range of motion, and function. Please teach a home exercise plan and incorporate PT into patient's exercise routine. [email or web address] Not available 11/22/2024 08:26:43 {{2 3 4* 5 6 7 8 9 }} view X-ray study obtained during today's office encounter show {{no*}} evidence of {{mild moderate se ras}} {{right* left bila teral}} {{hip* knee}} osteoarthritis. There is joint space narrowing, subchondral sclerosis and marginal osteophytosis. Kellgren-Joel grade {{0* 1 2 3 4}}. No evidence of acute fracture or osteolytic findings. Not available 11/15/2024 09:48:43 Reason for Referral Additional Comments: Referring Physician: Kerline Berman, Orthopedic Surgery, Encounter Date: 03/10/2024 Problems Name Problem SNOMED Code Status Onset Date Resolution Date Notes Provider Name and Address Organization Details Recorded Time Osteoarthri tis of right knee joint 6423828598624 00 Active [address], [place], [address], [facility] 4 10:20:13 Osteoarthri tis of left knee joint 8287318199227 09 Active [address], [place], [address], [place] [facility] 4 10:20:15 Tendinitis of right gluteal tendon 0984353971678 02 Active [address], [place], [address], [place] [facility] 5 09:44:55 Problem Notes None recorded. Procedures Surgical History Date Name Laterality Status Provider Name and Address Organization Details Recorded Time 5 MJG Knee injection w/US completed [address], [place], [address], [facility], [facility] 08/09/2024 16:01:41 4 MJG Knee injection w/US completed [address], [place], [address], [facility], [facility] 02/23/2024 10:22:08 Imaging Results None recorded. Procedure Notes None recorded. Medical Equipment None Reported. Allergies Allergen ID Allergen Name Allergen Category Reaction Reaction Severity Criticality Documentation Date Start Date Code Code System Note Provider Name and Address Organization Details Recorded Time 52578 codeine medicatio n Not available Not available Not available 03/10/2024 0720 RxNorm Bandar beebe, [facility] 4 10:03:27 Medications Name Sig Start Date Stop Date Status Note LastModified by Organization Details LastModified Time losartan 50 mg tablet TAKE 1 TABLET BY MOUTH DAILY active Not Available Not Available No t Available neomycin-po lymyxin-hyd rocort 3.5 mg/mL-10,00 0 unit/mL-1 % ear solution APPLY 3 DROPS TO EAR DIRECTED EVERY 6 HOURS FOR 10 DAYS 11/15 completed Not Available Not Available Not Available prednisone 10 mg tablet TAKE 3 TABLETS BY MOUTH DAILY FOR 2 DAYS THEN TAKE 2 TABLETS BY MOUTH DAILY FOR 2 DAYS THEN TAKE 1 TABLET BY MOUTH DAILY WITH FOOD FOR 2 DAYS 08/09 completed Not Available Not Available Not Available trazodone 50 mg tablet TAKE 1 TABLET BY MOUTH EVERY DAY AT BEDTIME active Not Available Not Available No t Available azithromyci n 250 mg tablet TAKE 2 TABLETS BY MOUTH FOR 1 DAY THEN TAKE 1 TABLET BY MOUTH DAILY FOR 4 DAYS 03/10 completed Not Available Not Available Not Available ibuprofen 800 mg tablet TAKE 1 TABLET BY MOUTH EVERY 8 HOURS 03/10 completed Not Available Not Available Not Available metoprolol succinate ER 50 mg tablet,exte nded release 24 hr TAKE 1 TABLET BY MOUTH DAILY active Not Available Not Available No t Available tamsulosin 0.4 mg capsule 03/10 completed Not Available Not Available Not Available phenazopyri dine 100 mg tablet 03/10 completed Not Available Not Available Not Available triamcinolo ne acetonide 40 mg/mL suspension for injection Take 40 mg by injection route. 2024 active Not Available Not Available Not Avai lable losartan 25 mg tablet TAKE 1 TABLET BY MOUTH DAILY 08/09 completed Not Available Not Available Not Available docusate sodium 100 mg capsule 03/10 completed Not Available Not Available Not Available oxybutynin chloride ER 5 mg tablet,exte nded release 24 hr TAKE ONE TO TWO TABLETS BY MOUTH DAILY NEEDED 03/10 completed Not Available Not Available Not Available cefdinir 300 mg capsule TAKE 2 CAPSULES BY MOUTH EVERY DAY FOR 10 DAYS 08/09 completed Not Available Not Available Not Available fluticasone propionate 50 mcg/actuati on nasal spray,suspe nsion SHAKE LIQUID AND USE 1 SPRAY IN EACH NOSTRIL ONCE A DAY 08/09 completed Not Available Not Available Not Available naproxen 500 mg tablet TAKE 1 TABLET BY MOUTH EVERY 12 HOURS NEEDED FOR PAIN TAKE WITH FOOD FOR PAIN AND SWELLING 08/09 completed Not Available Not Available Not Available oxycodone 5 mg tablet 03/10 completed Not Available Not Available Not Available escitalopra m 10 mg tablet TAKE 1 TABLET BY MOUTH EVERY MORNING active Not Available Not Available No t Available rosuvastati n 5 mg tablet TAKE 1 TABLET BY MOUTH EVERY 24 HOURS 03/10 completed Not Available Not Available Not Available rosuvastati n 20 mg tablet TAKE 1 TABLET BY MOUTH EVERY OTHER DAY active Not Available Not Available No t Available Marcaine (PF) 0.5 % (5 mg/mL) injection solution Take 4 mL by injection route. 2024 active Not Available Not Available Not Avai lable lidocaine (PF) 100 mg/5 mL (2 %) injection syringe Take 4 mL by injection route. 2024 active Not Available Not Available Not Avai lable Xarelto 20 mg tablet TAKE 1 TABLET BY MOUTH EVERY DAY active Not Available Not Available No t Available Vitals Date Recorded Body height Body mass index (BMI) Body weight Provider Name and Address Organization Details Last Updated DateTime 03/10/2024 162.56 cm 24.9 kg/m2 [address] [place] [facility] 03/10/2024 09:50:18 Date Recorded Body height Body mass index (BMI) Body weight Provider Name and Address Organization Details Last Updated DateTime 08/09/2024 162.56 cm 24.9 kg/m2 [address].[address] [place] [facility] 08/09/2024 15:44:33 Social History None recorded. Functional Status None recorded. Mental Status None recorded. Family History Nothing Reported. Medical History No medical history recorded. Gynecological HistoryNo gynecological history recorded. 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 Osteoarthr itis of right knee joint 5686626660 24150 M17.11 Additional diagnosis detail: Primary osteoarthr itis of right knee Osteoarthr itis of left knee joint 4851826869 69552 M17.12 Additional diagnosis detail: Primary osteoarthr itis of left knee [id number] JACLYN FRANCO Singh [address] [place] [address] 03/10/2024 09:41:56 03/10/2024 10:21:51 Low back pain 990292793 M54.50 Additional diagnosis detail: Lumbar pain [id number] JACLYN RUBIO [address] [place] [address] 08/09/2024 15:29:50 08/09/2024 16:42:04 Pain of right knee joint 1983917411 58803 M25.561 Osteoarthr itis of right knee joint 6194570309 21026 M17.11 Additional diagnosis detail: Primary osteoarthr itis of right knee [id number] JACLYN RUBIO [address] [place] [address] 11/15/2024 09:17:23 11/15/2024 09:45:00 Osteoarthritis of right knee joint 1552365390 36074 M17.11 Additional diagnosis detail: Primary osteoarthr itis of right knee Pain of hip region 12052 002 M25.551 Tendinitis of right gluteal tendon 1467514104 31543 M76.01 Health Concerns Section Related Observation LastModified by Organization Detai ls LastModified Time None Recorded Concern Status LastModified by Organization Details LastModified Time None Recorded Advance Directives Directive None Recorded Payers Encounter Date Sequence Insurance Name Policy Number Policy Vivas Covered Member ID Vivas Member ID Guarantor Name 02/23/2024 1 [facility] - ALL[facility] - CIGNA [id number] Kandy Genao [id number] Kandy Genao 03/10/2024 1 [facility] - [employer] - [employer] [id number] Kandy Genao [id number] Kandy Genao 08/09/2024 1 [facility] - [employer] - [employer] [id number] Kandy Genao [id number] Kandy Genao 11/15/2024 1 [facility] - [employer] - [employer] [id number] Kandy Gneao [id number] Kandy Genao Notes Date Note Type Note Provider Name and Address Organization Details Recorded Time 02/23/2024 text/html 53-year-old stacy nolasco presents with chief complaint of bilateral knee pain. She reports onset of her symptoms months to years ago. She reports a progressive worsening of her symptoms. She localizes her pain very focally to the medial joint compartment. On the right side she describes frequent radiation of pain down into the mcintosh. She describes increasing clicking snapping and popping sensations with variable amounts of swelling. She recognizes restriction on range of motion and intolerance to walking more than 10 minutes at a time. She reports having undergone an arthroscopy for torn meniscus approximately 15 years ago but it is unclear to her if that was right or left-sided. PEACE HOLT PA-C [address], [place], [address], [facility] 02/23/2024 10:45:14 08/09/2024 text/html 53-year-old stacy nolasco presents with recurrence of right knee pain. She reports that cortisone injections to bilateral knees on 02/23/2024 were effective at controlling her pain. The effects at the left knee have been lasting. The effects on the right knee were for approximately 2 to 2-1/2 months. She has since had worsening of pain back to her baseline of discomfort. She reports an intolerance to being in any 1 position for too long. She localizes her pain to the medial compartment of the right knee. There has been no new injury accident or trauma. PEACE HOLT PA-C [address], [place], [address], [facility] 08/09/2024 16:15:16 11/15/2024 text/html 54-year-old stacy nolasco presents for recheck of right knee. She reports that the cortisone injection on August 09, 2024 was effective giving her 2-1/2 months worth of relative reduction of the severity of her pain. After that, the effects waned. She believes that the right knee pain is changing her gait. More recently, she has been experiencing pain at the right hip. She localizes her discomfort to the region of the gluteal tendons and, to a lesser degree, the greater trochanter of the hip. PEACE HOLT PA-C [address], [place], [address], [place] [facility] 11/15/2024 09:48:53 OBGyn Episode No OBEpisode recorded.
--- OUTSIDE RECORDS SUMMARY | 2024-12-17 08:36 | XMS_ITS ---
Author Organization [facility] Address [address] [place] [address] Care Team Providers Care Metal Framer Name Role Phone Jimmy Aguilar MD Primary Care Provider [phone] Active Problems * This document contains information received from the source organization and may not represent a complete record from that organization. Problem Noted Date Diagnosed Date Suicide attempt 03/15/2023 Attention deficit hyperactivity disorder, combin ed type 11/21/2021 05/03/2023 Generalized anxiety disorder 10/22/2021 Lab test positive for detection of COVID-19 viru s 08/06/2021 Skin cancer 03/13/2020 05/03/2023 A-fib 03/04/2014 05/03/2023 Stroke (cerebrum) 12/27/2005 05/03/2023 High cholesterol 08/04/2004 05/03/2023 Hypertension 03/04/2003 05/03/2023 Current Treatment and Therapy Plans No current plan information found. Other Current Plans [facility]* Plan Start Date:08/07/2021 Plan Provider:Viki Barajas APRN Linked Problems Lab test positive for detect ion of COVID-19 virus Treatment Medications No medications scheduled. Past Treatment and Therapy Plans No past plan information found. Lifetime Dose Tracking * Chemical Lifetime Dose Automatic Entry Manual Entr y Dose Area Product(DAP)-micrograys-m2 182.11 microgray-m2 182.11 microgray-m2 0 microgray-m2
--- OUTSIDE RECORDS SUMMARY | 2024-12-17 08:36 | XMS_ITS | Clinical Summary ---
Author Organization [facility] Address [address] [place] [address] Care Team Providers Care Irs Agent Name Role Phone Jimmy Aguilar MD Primary Care Provider [phone] Allergies Active Allergy Reactions Criticality Noted Date Comments Codeine Itching Low 04/25/2014 Medications * This document contains information received from the source organization and may not represent a complete record from that organization. metoPROLOL SUCCINATE (TOPROL-XL) 25 MG 24 hr tablet Take 1 tablet (25 mg total) by mouth every morning. 07/12/2019 Active rivaroxaban (XARELTO) 20 MG tablet Take 1 tablet (20 mg total) by mouth every evening with dinner. Take with meals. Active losartan (COZAAR) 50 MG tablet Take 1 tablet (50 mg total) by mouth every morning. 05/02/2020 Active escitalopram (LEXAPRO) 10 MG tablet Take 1 tablet (10 mg total) by mouth every morning. 06/17/2023 Active traZODone (DESYREL) 50 MG tablet Take 1 tablet (50 mg total) by mouth nightly. 07/16/2023 Active rosuvastatin (CRESTOR) 20 MG tablet Take 1 tablet (20 mg total) by mouth every other day. 08/09/2023 Active benzonatate (TESSALON) 200 MG capsuleIndicati ons:Acute non-recurrent maxillary sinusitis Take 1 capsule (200 mg total) by mouth 3 (three) times a day as needed for cough. 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 05/03/2023 High cholesterol 08/04/2004 05/03/2023 Hypertension 03/04/2003 05/03/2023 Encounters Date Type Department Care Team Description 11/22/2024 6:50 PM EDT Office Visit [facility] [place] [address] [place] [address] Viktor Trinh MD Nguyen, Nam V, PA Blurred vision, bilateral (Primary Dx) 11/22/2024 Travel from Last 3 Months Immunizations Immunization Administration Dates Next Due Covid-19 MRNA Vaccine - Pfizer 12+ (Purple Cap) 11/22/2020,11/01/2020 Family History Medical History Relation Name Comments No Known Problems Father No Known Problems Mother Schizophrenia Son Relation Name Status Comments Father Mother Alive Son Alive Social History Tobacco Use Types Packs/Day Years Used Date Smoking Tobacco: Former Cigarettes Smokeless Tobacco: Never Tobacco Cessation:Counseling Given: Not Answered Comments:Per pt quit 20 years ago Alcohol Use Standard Drinks/Week Comments Yes [...] Orientation Heterosexual (straight) 03/15 12:08 AM EDT Last Filed Vital Signs Vital Sign Reading Time Taken Comments Blood Pressure 164/105 11/22/2024 6:59 PM EDT Pulse 57 09/14/2024 12:11 PM EST Temperature 36.8 ??C (98.2 ??F) 11/22/2024 6:59 PM ED T Respiratory Rate 16 11/22/2024 6:59 PM EDT Oxygen Saturation 100% 09/14/2024 12:11 PM EST Inhaled Oxygen Concentration - - Weight 71.7 kg (158 lb) 11/22/2024 6:59 PM EDT Height 165.1 cm (5' 5 ) 11/22/2024 6:59 PM EDT Body Mass Index 26.29 11/22/2024 6:59 PM EDT Plan of Treatment Upcoming Encounters Date Type Department Care Team (Late st Contact Info) Description 02/02/2025 11:30 AM EDT Office Visit [address] [address] Sacha Whitfield MD [address] [place] [address] 07/19/2025 8:45 AM EST Office Visit [facility] [address] [phone] Josh Fregoso MD [address] [place] [address] 08/23/2026 2:00 PM EST Office Visit [facility] Endocrinology [place] 190 [facility] [address] [place] [address] Ariel Jimenez MD 190 [facility] 103 [place] [address] Health Maintenance Due Date Last Done Comments Hepatitis C Virus Screening 1969 DTaP/Tdap/Td Vaccines (1 - Tdap) 1988 Hepatitis B Vaccines (1 of 3 - 19+ 3-dose series) 1988 Pneumococcal Vaccines 50+ (1 of 2 - PCV) 1988 Zoster (Shingles) Vaccine (1 of 2) 1988 Pap Smear (Ages 21-65) 1990 Mammogram 2009 Colonoscopy 2014 COVID-19 Vaccine (3 - Pfizer risk series) 12/20/2020 11/22/2020, 11/01/2020 Influenza Vaccine 03/04/2025 10/21/2019, , 08/10/2017 HIV Screening Completed 07/26/2021 Medical Devices Explanted Type Area Branch Account Executive Device Identifier Shelf Expiration Date Model / Serial / Lot [id number] Stent Ureteral 6fr 24cm Taper Tip Bldr Marc Lp Contour Hdr+ - [id number] Implanted:Qty : 1 on 07/23/2023 by Bora Tinajero MD at [facility] Explanted:Qty : 1 on 07/06/2024 Stent Right: Ureter [employer] [id number] 02/21/2026 [id number] / / [id number] Stent Ureteral 6fr 24cm Taper Tip Bldr Marc Lp Contour Hdr+ - [id number] Implanted:Qty : 1 on 07/23/2023 by Bora Tinajero MD at [facility] Explanted:Qty : 1 on 07/06/2024 Stent Left: Ureter [employer] [id number] 02/21/2026 [id number] 20 / / [id number] Insurance [employer] [facility] [id number] [facility] INSUR[facility] INS[facility] Care Teams Irs Agent Relationship Specialty Start Date End Date Jimmy Aguilar MD [address] [place] [address] PCP - General Internal Medicine 10/03/19
--- OUTSIDE RECORDS SUMMARY | 2024-12-17 08:36 | XMS_ITS | Encounter Summary ---
Author Organization [facility] Address [address] [place] [address] Care Team Providers Care Practice Physician Name Role Phone Jimmy Aguilar MD Primary Care Provider [phone] Encounter Details Date Type Department Care Team ([facility] st Contact Info) Description 07/14/2023 Telephone [facility] [address] [place] [address] Jimmy Aguilar MD [address] [place] [address] Social History Tobacco Use Types Packs/Day Years Used Date Smoking Tobacco: Never Smokeless Tobacco: Never Alcohol Use Standard Drinks/Week Comments Yes 0 (1 standard drink = 0.6 oz pur e alcohol) occasional AUDIT-C Answer Date Recorded Q1: How often [...] Description 02/02/2025 11:30 AM EDT Office Visit [facility] [address] [place] [address] Sacha Whitfield MD [address] [place] [address] 07/19/2025 8:45 AM EST Office Visit [facility] 10 [facility] [address] [place] [address] Josh Fregoso MD [address] [place] [address] 08/23/2026 2:00 PM EST Office Visit [facility] Endocrinology [place] 190 [facility] 103 [place] [address] Ariel Jimenez MD 190 [facility] [address] [place] [address] documented as of this encounter Visit Diagnoses Not on filedocumented in this encounter Care Teams Practice Physician Relationship Specialty Start Date End Date Jimmy Aguilar MD [address] [place] [address] PCP - General Internal Medicine 10/03/19 documented as of this encounter
== END ==
LOC: HO.CARD 08:21
PROVIDERS: Visit Provider Internal Medicine Cardiovascular Disease
DX: I48.0 Paroxysmal atrial fibrillation (principal)
CPT/HCPCS: 93306

== ENCOUNTER → 2024-12-17 08:27 | Outpatient (BNV) | payer OTHER, SELFPAY | PROVIDERS: Visit Provider Internal Medicine Cardiovascular Disease | DX: I48.0 Paroxysmal atrial fibrillation (principal) | CPT/HCPCS: 93306 ==

== ENCOUNTER 2024-12-23 08:27 | Outpatient (AMB) | payer OTHER, SELFPAY ==
[2024-12-23 08:32] VITALS: BP 110/70; PULSE 75; BMI 26.4
--- NOTE | 2024-12-23 08:32 | A.OFFVIS_ITS ---
Vital Signs 12/23/24 08:32 Height 5 ft 5 in Weight 158 lb 11.725 oz BMI 26.4 BP 110/70 Blood Pressure Location Lt brachial Position Sitting Pulse 75 Intake Visit Reasons: 1 yr s/p echo Intake Note: 1 year follow-up with ekg after echo feeling good [employer] Librarian Required: No Allergies bupropion [From Wellbutrin] Allergy (Unknown, Verified 03/22/21 14:41) unknown codeine [CODEINE] Allergy (Unknown, Verified 03/22/21 14:41) UNKNOWN trazodone [TRAZODONE] Allergy (Unknown, Verified 03/22/21 14:41) ITCHING HPI Comments Details: Kandy comes for follow-up annual for her atrial fibrillation has hypertension. She remains active but does not exercise on regular basis. She says she gets intermittent episodes of atrial fibrillation usually after she has some kind of mixed drink. However symptoms last only about 20 seconds to a minute. Not log enough for her to take flecainide. She gets symptomatic but usually these are very infrequent symptoms. She avoids alcohol use. She denies any exertional chest pain or shortness of breath. She also notices intermittently she has significantly elevated blood pressure for unclear reasons. She has not been able to figure out a triggers. Otherwise at other times a blood pressure is generally very well controlled. She had echocardiogram which was essentially normal [facility] Medical History Family history of coronary artery disease HLD (hyperlipidemia) PAF (paroxysmal atrial fibrillation) HTN (hypertension) Family History Father CVD (cardiovascular disease) Mother No problems noted. Social History Alcohol intake: current Alcohol intake frequency: a few times a week Alcohol type: beer, wine and hard liquor Patient Tobacco Use Status: Never used Tobacco Review of Systems Const Denies chills, Denies fatigue, Denies fever(s), Denies frequent falls, Denies weakness, Denies weight gain and Denies weight loss ENT Denies dizziness Card Denies chest pain, Denies leg edema, Denies lightheadedness, Denies palpitations, Denies dyspnea, Denies dyspnea on exertion, Denies orthopnea and Denies other (loss of consciousness) Resp Denies cough, Denies dyspnea and Denies dyspnea on exertion GI Denies hematochezia and Denies change in stool character Musc Denies abnormal gait, Denies muscle weakness, Denies numbness, Denies radiating pain into limb and Denies tingling Neuro Denies abnormal gait, Denies dizziness, Denies frequent falls, Denies numbness, Denies tingling and Denies weakness Endo Denies fatigue and Denies palpitations Physical Exam Vital Signs: Last Vital Signs Pulse 75 12/23/24 08:32 BP 110/70 12/23/24 08:32 BMI result Body Mass Index 26.4 Const General: cooperative, healthy appearing, comfortable and no acute distress Orientation/consciousness: patient oriented x3 HEENT Head: Yes normal to inspection Neck Neck: Yes normal visual inspection and Yes no JVD Carotids: normal carotid upstroke Resp Effort & Inspection: normal respiratory effort Auscultation: clear to auscultation bilaterally, no crackles, no rales, no rhonchi and no wheezes Cardio Jugular venous distension: no JVD Rate: regular rate Rhythm: regular rhythm Heart sounds: S1 normal heart sound present, S2 normal heart sound present, no gallops, no murmurs and no rubs Peripheral pulses: Peripheral pulses 2+ throughout GI Inspection: Yes normal to inspection Neuro General: patient oriented x3 Extrem General: Yes normal to inspection, No no pedal edema and No calf tenderness Office Procedures EKG Details: EKG shows normal sinus rhythm with RSR prime pattern suggestive of RV conduction delay with nonspecific T-wave changes with minimally prolonged QT interval 94640-Eqhzeywlooojsskxh, Complete Assessment & Plan Assessment & Plan (1) PAF (paroxysmal atrial fibrillation): Code(s): I48.0 - Paroxysmal atrial fibrillation Category: Medical Plan: Highly symptomatic paroxysmal atrial fibrillation with persistent intermittent episodes of symptoms and she has identified some triggers. Symptoms however very infrequent and very short lasting. She has not had to take flecainide therapy. We discussed about use of flecainide on the 1st time basis. Continue metoprolol use. Continue aggressive blood pressure control. Continue full oral anticoagulation, currently on Xarelto 20 mg daily. Semi annual renal function test should be pursued, being pursue through your office. She is encouraged to avoid stimulants especially alcohol which triggers her episodes. Avoidance of caffeine was discussed. Stress mitigation strategies were discussed. (2) HTN (hypertension): Code(s): I10 - Essential (primary) hypertension Category: Medical Plan: Hypertension today's exam is well optimized on current therapy. Overall she says her blood pressure is generally well control intermittent spikes are noted. I have advised her to identify if any possible triggers. Advise low-salt diet. Advised stress mitigation strategies. Encouraged to increase activity level as tolerated. Will follow up in the clinic in 1 year's time, sooner p.r.n.. Thank you for allowing me to partake in her care Coding Level of Care Code Est Pt Level 4 (27990) Complex EM visit Add On G2211 Diagnoses PAF (paroxysmal atrial fibrillation) I48.0 HTN (hypertension) I10 CPT Codes EKG - CPT: 61892-[id number], Complete ([id number])
--- OUTSIDE RECORDS SUMMARY | 2024-12-23 08:41 | XMS_ITS | Encounter Summary ---
Author Organization [facility] Address [address] [place] [address] Care Team Providers Care Extractor Loader And Unloader Name Role Phone Jimmy Aguilar MD Primary Care Provider [phone] Encounter Details Date Type Department Care Team (Late st Contact Info) Description 06/11/2021 Scanned Document [address] [address] Provider, Generic Social History Tobacco [...] Description 02/02/2025 11:30 AM EDT Office Visit [facility] [address] [place] [address] Sacha Whitfield MD [address] [place] [address] 07/19/2025 8:45 AM EST Office Visit [facility] 10 [facility] [address] [place] [address] Josh Fregoso MD 80 [place] [address] 08/23/2026 2:00 PM EST Office Visit [facility] Endocrinology [place] 190 [facility] 103 [place] [address] Ariel Jimenez MD 190 [facility] 103 [place] [address] documented as of this encounter Visit Diagnoses Not on filedocumented in this encounter Care Teams Extractor Loader And Unloader Relationship Specialty Start Date End Date Jimmy Aguilar MD [address] [place] [address] PCP - General Internal Medicine 10/03/19 documented as of this encounter
--- OUTSIDE RECORDS SUMMARY | 2024-12-23 08:41 | XMS_ITS | Clinical Summary ---
Author Organization [facility] Address [address] [place] [address] Care Team Providers Care Intellectual Property Manager Name Role Phone Jimmy Aguilar MD Primary Care Provider [phone] Allergies Active Allergy Reactions Criticality Noted Date [...] Description 11/22/2024 6:50 PM EDT Office [facility] [place] [address] [place] [address] Viktor Trinh MD Nguyen, Nam V, PA [...] Description 02/02/2025 11:30 AM EDT Office Visit [address] [address] Sacha Whitfield MD [address] [place] [address] 07/19/2025 8:45 AM EST Office Visit [facility] [address] [phone] Josh Fregoso MD [address] [place] [address] 08/23/2026 2:00 PM EST Office Visit [facility] Endocrinology [place] 190 [facility] 103 [place] [address] Ariel Jimenez MD 190 [facility] 103 [place] [address] Health Maintenance Due Date Last Done Comments [...] Completed 07/26/2021 Medical Devices Explanted Type Area Child Support Officer Device Identifier Shelf Expiration Date Model / Serial / Lot [id number] Stent Ureteral 6fr 24cm Taper Tip Bldr Marc Lp Contour Hdr+ - [id number] Implanted:Qty : 1 on 07/23/2023 by Bora Tinajero MD at [facility] Explanted:Qty : 1 on 07/06/2024 Stent Right: Ureter [employer] [id number] 02/21/2026 [id number] / / [id number] Stent Ureteral 6fr 24cm Taper Tip Bldr Marc Lp Contour Hdr+ - [id number] Implanted:Qty : 1 on 07/23/2023 by Bora Tinajero MD at [facility] Explanted:Qty : 1 on 07/06/2024 Stent Left: Ureter [employer] [id number] 02/21/2026 [id number] 20 / / [id number] Insurance [employer] [facility] [id number] [facility] INSURANCE [facility] INSURANCE Care Teams Intellectual Property Manager Relationship Specialty Start Date End Date Jimmy Aguilar MD [address] [place] [address] PCP - General Internal Medicine 10/03/19
--- OUTSIDE RECORDS SUMMARY | 2024-12-23 08:41 | XMS_ITS | Encounter Summary ---
Author Organization [facility] Address [address] [place] [address] Care Team Providers Care Survey Methodologist Name Role Phone Jimmy Aguilar MD Primary Care Provider Encounter Details Date Type Department Care Team (Latest Contact Info) Description 09/26/2020 Lab Requisition [facility] [address] Through [address] [place] [address] [address] [place] [address] Jamel Hernandez MD 80 [place], [place] [phone] Encounter for laboratory testing for COVID-19 virus [...] Description 02/02/2025 11:30 AM EDT Office Visit [address] [phone] Sacha Whitfield MD [address] [place] [address] 07/19/2025 8:45 AM EST Office Visit [facility] 10 [facility] [address] [place] [address] Josh Fregoso MD 80 [place] [address] 08/23/2026 2:00 PM EST Office Visit [facility] Endocrinology [place] [address] [place] [address] [place] [address] Ariel Jimenez MD [address] [place], [place] [phone] documented as of this encounter Procedures Procedure Name Priority Date/Time Associated Diagnosis Comments COVID-19 (SARS-COV-2) - [facility] Routine 09/26/2020 4:54 PM EST Encounter for laboratory testing for COVID-19 virus [ICD-10-CM] documented in this encounter Results * COVID-19 (SARS-COV-2) ([facility]) (09/26/2020 4:54 PM EST) COVID-19 RT-PCR NOT-DETEC JEREMÍAS Not-Detec jeremías 09/27/2020 7:12 PM EST [facility] Comment:Interpretation: The viral RNA was not detected, making the COVID-19 diagnosis less likely. Clinical correlation is highly recommended.Final report signed by Jose Veloz, Ph.D., Laboratory DirectorTests performed at [facility] Nasopharyngeal swab / Unknown 09/26/2020 4:54 PM EST 09/26/2020 4:54 PM EST Narrative [facility] [place] - 09/27/2020 7:12 PM EST Performed by [facility] [address] [place], [place] [id number], CLIA# [id number] and [place] License# [id number] us Jamel Hernandez MD MICROBIOLOGY - GENERAL ORDER TWAN Final Result SEMA4 LATOYA HUERTAS documented in this encounter Visit Diagnoses Diagnosis Encounter for laboratory testing for COVID-19 virus documented in this encounter Care Teams Survey Methodologist Relationship Specialty Start Date End Date Jimmy Aguilar MD [address] [place] [address] PCP - General Internal Medicine 10/03/19 documented as of this encounter
--- OUTSIDE RECORDS SUMMARY | 2024-12-23 08:41 | XMS_ITS | Encounter Summary ---
Author Organization [facility] Address [address] [place] [address] Care Team Providers Care Appliance Tester Name Role Phone Jimmy Aguilar MD Primary Care Provider Encounter Details Date Type Department Care Team (Latest Contact Info) Description 09/02/2020 Lab Requisition [facility] [address] Through [address] [place] [address] [address] [place] [address] Jamel Hernandez MD 80 [place], [place] [phone] Encounter for laboratory testing for COVID-19 virus [...] Description 02/02/2025 11:30 AM EDT Office Visit [address] [phone] Sacha Whitfield MD [address] [place] [address] 07/19/2025 8:45 AM EST Office Visit [facility] 10 [facility] [address] [place] [address] Josh Fregoso MD 80 [place] [address] 08/23/2026 2:00 PM EST Office Visit [facility] Endocrinology [place] [address] [employer] [facility] [address] [place] [address] Ariel Jimenez MD [address] [employer] [facility] [address] [place], [place] [phone] documented as of this encounter Procedures Procedure Name Priority Date/Time Associated Diagnosis Comments COVID-19 (SARS-COV-2) - [facility] Routine 09/02/2020 1:27 PM EST Encounter for laboratory testing for COVID-19 virus [ICD-10-CM] documented in this encounter Results * COVID-19 (SARS-COV-2) ([facility]) (09/02/2020 1:27 PM EST) COVID-19 RT-PCR NOT-DETEC JEREMÍAS Not-Detec jeremías 09/03/2020 9:33 PM EST [facility] Comment:Interpretation: The viral RNA was not detected, making the COVID-19 diagnosis less likely. Clinical correlation is highly recommended.Final report signed by Willi Moser, Ph.D., Laboratory DirectorTests performed at [facility] Nasopharyngeal swab / Unknown 09/02/2020 1:27 PM EST 09/02/2020 1:27 PM EST Narrative [facility] - 09/03/2020 9:33 PM EST Performed by [facility] [address] [place], [place] [id number], CLIA# [id number] and [place] License# [id number] us Jamel Hernandez MD MICROBIOLOGY - GENERAL ORDER TWAN Final Result SEMA4 LATOYA HUERTAS documented in this encounter Visit Diagnoses Diagnosis Encounter for laboratory testing for COVID-19 virus documented in this encounter Care Teams Appliance Tester Relationship Specialty Start Date End Date Jimmy Aguilar MD [address] [place] [address] PCP - General Internal Medicine 10/03/19 documented as of this encounter
--- OUTSIDE RECORDS SUMMARY | 2024-12-23 08:41 | XMS_ITS | Encounter Summary ---
Author Organization [facility] Address [address] [place] [address] Care Team Providers Care Radiotelegrapher Name Role Phone Jimmy Aguilar MD Primary Care Provider [phone] Encounter Details Date Type Department Care Team (Late st Contact Info) Description 05/03/2023 11:15 AM EDT Hospital Encounter [facility] [address] [place] [address] Social History Tobacco Use Types [...] Description 02/02/2025 11:30 AM EDT Office Visit [facility] [address] [place] [address] Sacha Whitfield MD [address] [place] [address] 07/19/2025 8:45 AM EST Office Visit [facility] [address] [phone] Josh Fregoso MD [address] [place] [address] 08/23/2026 2:00 PM EST Office Visit [facility] Endocrinology [place] 190 [facility] 103 [place] [address] Ariel Jimenez MD 190 [facility] 103 [place] [address] documented as of this encounter Procedures Procedure [...] IMPRESSION: No acute osseous abnormalities. Pia Jhoana [facility] LISA BURGOS Final Result documented in this encounter Visit Diagnoses Not on filedocumented in this encounter Care Teams Radiotelegrapher Relationship Specialty Start Date End Date Jimmy Aguilar MD [address] [place] [address] PCP - General Internal Medicine 10/03/19 documented as of this encounter
--- OUTSIDE RECORDS SUMMARY | 2024-12-23 08:41 | XMS_ITS | Encounter Summary ---
Author Organization [facility] Address [address] [place] [address] Care Team Providers Care Window Tinter Name Role Phone Jimmy Aguilar MD Primary Care Provider [phone] Encounter Details Date Type Department Care Team (Late st Contact Info) Description 07/10/2020 Lab Requisition [facility] [address] Through [address] [place] [phone] Bora Ricketts PA-C [address] [place] [address] Encounter for laboratory testing for COVID-19 virus [...] Description 02/02/2025 11:30 AM EDT Office Visit [address] [address] Sacha Whitfield MD [address] [place] [address] 07/19/2025 8:45 AM EST Office Visit [facility] [address] [facility] [address] [place] [address] Josh Fregoso MD [address] [place] [address] 08/23/2026 2:00 PM EST Office Visit [facility] [place] [address] [facility], [facility] [address] [place] [phone] Ariel Jimenez MD [address] [facility] [address] [place], [place] [phone] documented as of this encounter Procedures Procedure Name Priority Date/Time Associated Diagnosis Comments COVID-19 (SARS-COV-2) - [facility] Routine 07/10/2020 10:32 AM EST Encounter for laboratory testing for COVID-19 virus [ICD-10-CM] documented in this encounter Results * COVID-19 (SARS-COV-2) (07/10/2020 10:32 AM EST) COVID-19 RT-PCR NOT-DETEC JEREMÍAS Not-Detec jeremías 07/11/2020 12:01 PM EST [facility] - [facility] Comment:Interpretation: The viral RNA was not detected, making the COVID-19 diagnosis less likely. Clinical correlation is highly recommended.Final report signed by Willi Moser, Ph.D., Laboratory DirectorTests performed at [facility] Nasopharyngeal swab / Unknown 07/10/2020 10:32 AM EST 07/10/2020 10:32 AM EST Narrative [facility] - [facility] - 07/11/2020 12:01 PM EST Performed by [facility]., [address] [place] [id number], CLIA# [id number] and [place] License# [id number] Bora Ricketts PA-C MICROBIOLOGY - GENERAL OR DERABLES Final Result [facility] documented in this encounter Visit Diagnoses Diagnosis Encounter for laboratory testing for COVID-19 virus documented in this encounter Care Teams Window Tinter Relationship Specialty Start Date End Date Jimmy Aguilar MD [address] [place] [address] PCP - General Internal Medicine 10/03/19 documented as of this encounter
--- OUTSIDE RECORDS SUMMARY | 2024-12-23 08:41 | XMS_ITS ---
Author Organization [facility] Address [address] [place] [address] Care Team Providers Care Qa Tech Name Role Phone Jimmy Aguilar MD Primary Care Provider [phone] Active Problems * This document contains information [...]
--- OUTSIDE RECORDS SUMMARY | 2024-12-23 08:41 | XMS_ITS | Encounter Summary ---
Author Organization [facility] Address [address] [place] [address] Care Team Providers Care Stove Fitter Name Role Phone Jimmy Aguilar MD Primary Care Provider Encounter Details Date Type Department Care Team ([facility] st Contact Info) Description 07/14/2023 Telephone [facility] [address] [place] [address] Jimmy Aguilar MD [address] [place] [address] Social History Tobacco Use Types Packs/Day Years [...] Description 02/02/2025 11:30 AM EDT Office Visit [facility] [address] [place] [address] Sacha Whitfield MD [address] [place] [address] 07/19/2025 8:45 AM EST Office Visit [facility] [address] [facility] [address] [place] [address] Josh Fregoso MD [address] [place] [address] 08/23/2026 2:00 PM EST Office Visit [facility] Endocrinology [place] [address] [facility] [address] [place] [address] Ariel Jimenez MD [address] [facility] [address] [place] [address] documented as of this encounter Visit Diagnoses Not on filedocumented in this encounter Care Teams Stove Fitter Relationship Specialty Start Date End Date Jimmy Aguilar MD [address] [place] [address] PCP - General Internal Medicine 10/03/19 documented as of this encounter
--- OUTSIDE RECORDS SUMMARY | 2024-12-23 08:41 | XMS_ITS | Data Portability ---
Author Organization [place] [facility] [place] Address [address] [place] [address] Care Team Providers Care Furniture Maker Name Role Phone AILEEN OROURKE Referring Provider [...] physical examination, tests/diagnostic imaging, and treatment plan [email or web address] Not available 03/10/2024 11:52:41 08/09/2024 08/09/2024 53-year-old [...] was seen and evaluated by Peace Holt, , PA-C in indirect conjunction with documenting/supervisin g [...] Right 2024 025 [email or web address] Not available 5 15:01:44 Surgeries None recorded. Imaging XR, hip, unilatera l, 2 or 3 view 2024 025 [email or web address] [facility], [address], [place], [address], 5 09:45:00 XR, knee, 4 or more view 2024 025 [email or web address] [facility], [address], [place], [address], 5 16:42:04 XR, lumbosacr al spine, 2 or 3 view 2023 024 [email or web address] [facility], [address], [place], [address], 4 11:59:09 XR, knee, 1 or 2 view - Left Knee Pain 2023 024 [email or web address] 52 [facility], [address], [place], [address], 4 10:34:32 XR, knee, 1 or 2 view - Right Knee Pain 2023 024 [email or web address] 52 [facility], [address], [place], [address], 4 10:34:32 XR, knee, weightbea ring - Bilateral Knee Pain 2023 024 [email or web address] 52 [facility], [address], [place], [address], 4 10:34:32 Medication Orders Marcaine (PF) 0.5 % (5 mg/mL) injection solution 2024 025 [id number], [address], [place], [place], [id number], 5 16:03:07 lidocaine (PF) 100 mg/5 mL (2 %) injection syringe 2024 025 [facility]13563, [address], [place], [place], [id number], 5 16:03:07 triamcino lone acetonide 40 mg/mL suspensio n for injection 2024 025 [facility], [address], [place], [place], [id number], 5 16:03:07 Marcaine (PF) 0.5 % (5 mg/mL) injection solution 2023 024 [facility]84999, [address], [place], [place], [id number], 4 10:04:21 lidocaine (PF) 100 mg/5 mL (2 %) injection syringe 2023 024 [facility] #52595, [address], [place], [place], [id number], 4 10:04:10 triamcino lone acetonide 40 mg/mL suspensio n for injection 2023 024 [facility] #76604, [address], [place], [place], [id number], 4 10:05:00 Patient TargetsNo targets recorded. Patient Instructions Encounter Date Encounter Id Patient Instructions Last Modified By Organization Details Last Modified Time 02/23/2024 [id number] physical therapy * - Diagnosis: Osteoarthritis bilateral [...] osteolytic findings. Not available 02/23/2024 10:23:32 03/10/2024 [id number] AP and lateral x-rays of the lumbar spine were obtained on 03/10/2024 which demonstrates narrowing of the L5-S1 level as well as mildly at the L4-L5. No other acute osseous abnormalities. [email or web address] Not available 03/10/2024 11:52:43 08/09/2024 [id number] {{2 3 4 5 6* 7 8 [...] osteolytic findings. Not available 08/09/2024 16:03:02 11/15/2024 [id number] physical therapy * - Evaluate and treat [...] Time Osteoarthri tis of right knee joint 5380241640657 00 Active [address], [place], [address], [facility] 4 10:20:13 Osteoarthri tis of left knee joint 1418317840074 09 Active [address], [place], [address], [place] [facility] 4 10:20:15 Tendinitis of right gluteal tendon 0572026983447 02 Active [address], [place], [address], [place] [facility] 5 09:44:55 Problem Notes None recorded. Procedures Surgical History Date Name Laterality Status Provider Name and Address Organization Details Recorded Time 5 MJG Knee injection w/US completed [address], [place], [address], [facility] 08/09/2024 16:01:41 4 MJG Knee injection w/US completed [address], [place], [address], [facility] 02/23/2024 10:22:08 Imaging Results None recorded. Procedure Notes None recorded. Medical Equipment None Reported. Allergies Allergen ID Allergen Name Allergen Category Reaction Reaction Severity Criticality Documentation Date Start Date Code Code System Note Provider Name and Address Organization Details Recorded Time 76032 codeine medicatio n Not available Not available Not available 03/10/2024 7420 RxNorm Bandar beebe, [facility] 4 10:03:27 Medications Name Sig Start [...] Updated DateTime 03/10/2024 162.56 cm 24.9 kg/m2 [address]86.[address] - [facility] 03/10/2024 09:50:18 Date Recorded Body height Body mass index (BMI) Body weight Provider Name and Address Organization Details Last Updated DateTime 08/09/2024 162.56 cm 24.9 kg/m2 [address]23.[address] - [facility] 08/09/2024 15:44:33 Social History None recorded. Functional Status None recorded. Mental Status None recorded. Family History Nothing Reported. Medical History No medical history recorded. Gynecological HistoryNo gynecological history recorded. 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 Osteoarthr itis of right knee joint 4536607573 73851 M17.11 Additional diagnosis detail: Primary osteoarthr itis of right knee Osteoarthr itis of left knee joint 6831485951 48801 M17.12 Additional diagnosis detail: Primary osteoarthr itis of left knee [id number] JACLYN FRANCO Singh [address] [place] [address] 03/10/2024 09:41:56 03/10/2024 10:21:51 Low back pain 964576617 M54.50 Additional diagnosis detail: Lumbar pain [id number] JACLY[address] RUBIO Singh [address] [place] [address] 08/09/2024 15:29:50 08/09/2024 16:42:04 Pain of right knee joint 4053704839 37586 M25.561 Osteoarthr itis of right knee joint 2824647846 39936 M17.11 Additional diagnosis detail: Primary osteoarthr itis of right knee [id number] JACLYN RUBIO Singh [address] [place] [address] 11/15/2024 09:17:23 11/15/2024 09:45:00 Osteoarthritis of right knee joint 8450603137 00816 M17.11 Additional diagnosis detail: Primary osteoarthr itis of right knee Pain of hip region 86522 002 M25.551 Tendinitis of right gluteal tendon 8420097612 86354 M76.01 Health Concerns Section Related Observation LastModified by Organization Detai ls LastModified Time None Recorded Concern Status LastModified by Organization Details LastModified Time None Recorded Advance Directives Directive None Recorded Payers Encounter Date Sequence Insurance Name Policy Number Policy Vivas Covered Member ID Vivas Member ID Guarantor Name 02/23/2024 1 [facility] - ALLIED - CIGNA [id number] Kandy Genao [id number] Kandy Genao 03/10/2024 1 [facility] - ALLIED - [employer] [id number] Kandy Genao [id number] Kandy Genao 08/09/2024 1 [facility] - ALLIED - [employer] [id number] Kandy Genao [id number] Kandy Genao 11/15/2024 1 [facility] - ALLIED - [employer] [id number] Kandy Genao [id number] Kandy Genao Notes Date Note Type Note [...] PEACE HOLT PA-C [address], [place], [address], [facility] - [facility] 02/23/2024 10:45:14 08/09/2024 text/html 53-year-old stacy [...] PEACE HOLT PA-C [address], [place], [address], [facility] - [facility] 08/09/2024 16:15:16 11/15/2024 text/html 54-year-old stacy [...] PEACE HOLT PA-C [address], [place], [address], [place] [facility] 11/15/2024 09:48:53 OBGyn Episode No OBEpisode recorded.
--- OUTSIDE RECORDS SUMMARY | 2024-12-23 08:41 | XMS_ITS | Patient Health Record ---
Author Organization [employer] [facility]. Address [address] [facility] [id number] [address] Care Team Providers Care Seismograph Computer Name Role Phone Conversion, Primary Care Provider REASON FOR REFERRAL No Information PLAN OF TREATMENT No Information
== END 2024-12-23 09:00 | disposition home or self-care (01) ==
LOC: HO.HCS 08:28
PROVIDERS: PCP Internal Medicine; Visit Provider Internal Medicine Cardiovascular Disease
DX: I48.0 Paroxysmal atrial fibrillation (principal); I10 Essential (primary) hypertension
CPT/HCPCS: 93010; 99214; G2211

== ENCOUNTER → 2024-12-23 08:27 | Outpatient (BNVA) | payer OTHER, SELFPAY | PROVIDERS: PCP Internal Medicine; Visit Provider Internal Medicine Cardiovascular Disease | DX: I48.0 Paroxysmal atrial fibrillation (principal) | CPT/HCPCS: 93005 ==